=== PATIENT | female | born 1940 | race Caucasian/White ===

== ENCOUNTER → 2019-07-31 08:48 | Outpatient (CLI) | payer MEDICARE, SELFPAY ==
--- NOTE | ~2019-07-31 | MMUS_ITS ---
EXAMINATION: MM diagnostic nabeel RT w jacy, US breast RT complete HISTORY: Six-month follow-up of dense tissue in lateral mid right breast. Right breast pain TECHNIQUE: ML, MLO and cc full field and spot 3-D tomosynthesis images of the right breast were perfo rmed and synthetic 2-D images were generated. CAD analysis was submitted and interpreted. High resolu tion complete right breast ultrasound was performed. COMPARISON: 12/18/2018 diagnostic bilateral digital mammogram and complete right breast ultrasound 08/16/2017 bilateral diagnostic digital mammogram and complete right breast ultrasound 02/16/2012 bilateral digital screening mammogram 05/15/2010 bilateral digital screening mammogram BREAST PARENCHYMAL COMPOSITION: The breasts are extremely dense, which lowers the sensitivity of mamm ography. FINDINGS: MAMMOGRAPHIC FINDINGS: 2 biopsy markers are again noted on the right. No interval suspicious mass or architectural distortio n or significant new or developing density of the right breast is evident. There are numerous benign calcifications. ULTRASOUND: There is very dense echotexture particularly at 6:00 and 10:00 areas. The dense mammographic stroma a nd the dense sonographic tissue with shadowing at these areas limits of these examinations. Close cor relation with physical examination is important. MRI imaging may be of benefit in this setting. At right breast 6:00 position 5 cm from the nipple there is a parallel circumscribed complicated 10 x 4 x 12 mm lesion without internal vascularity or suspicious shadowing, having benign sonographic fea tures. No other definite focal mass lesion is noted. IMPRESSION: 1. Limited mammographic and sonographic examinations due to very dense tissue 2. Consider MRI breast evaluation BI-RADS Category 0: Incomplete: Needs additional imaging evaluation. Reviewed, dictated and finalized at location A. PER IMPRESSION: 1. Limited mammographic and sonographic examinations due to very dense tissue 2. Consider MRI breast evaluation BI-RADS Category 0: Incomplete: Needs additional imaging evaluation.
== END ==
PROVIDERS: PCP Internal Medicine Hematology & Oncology; Visit Provider Internal Medicine Hematology & Oncology
DX: R92.8 Other abnormal and inconclusive findings on diagnostic imaging of breast (principal)
CPT/HCPCS: 76641; 77061; 77065; G0279

== ENCOUNTER → 2019-09-05 10:52 | Outpatient (CLI) | payer MEDICARE, SELFPAY ==
--- NOTE | ~2019-09-05 | XR_ITS ---
EXAMINATION: XR shoulder LT min 2V DATE: 09/05/2019 11:20 INDICATION: Left shoulder pain. TECHNIQUE: 4 views of left shoulder were obtained. COMPARISON: None. FINDINGS: Bone alignment is normal. No fracture. There is severe osteoarthritis of glenohumeral joint and moderate osteoarthritis of acromioclavicular joint. There are loose bodies in the glenohumeral j oint. There are changes of anterior and posterior fusion procedures in cervical spine. A left chest p acer is noted. IMPRESSION: 1. Polyarticular osteoarthritis. 2. Left glenohumeral joint loose bodies. Reviewed, dictated and finalized at location A. TY SALES ASSISTANT
== END ==
PROVIDERS: PCP Family Medicine; Visit Provider Family Medicine
DX: M19.012 Primary osteoarthritis, left shoulder (principal); M24.012 Loose body in left shoulder
CPT/HCPCS: 73030

== ENCOUNTER → 2020-01-23 08:40 | Outpatient (CLI) | payer MEDICARE, SELFPAY ==
--- NOTE | ~2020-01-23 | MMUS_ITS ---
EXAMINATION: MM diagnostic nabeel BI w jacy, US breast RT limited HISTORY: Follow-up right breast mass TECHNIQUE: Additional 3-D tomosynthesis images of the breasts were performed and synthetic 2-D images were generated. CAD analysis was submitted and interpreted. High resolution right breast ultrasound was performed. COMPARISON: Comparison to multiple prior studies sequentially, with oldest reviewed study dated 05/04. BREAST PARENCHYMAL COMPOSITION: BREAST PARENCHYMAL COMPOSITION: The breasts are heterogeneously dense, which may obscure small masses . 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 There are scat tered benign-appearing calcifications. There are no new masses, calcifications or architectural disto rtion in either breast to suggest malignancy. ULTRASOUND: Right breast ultrasound: Stable 12 mm intramammary lymph node at the 6:00 position of the right breast, 5 cm from the nipple m easuring 12 mm greatest dimension. No suspicious masses to suggest malignancy. IMPRESSION: 1. No mammographic or sonographic evidence for malignancy in the breasts. 2. Routine yearly screening mammogram and regular clinical breast examination are recommended. BI-RADS Category 2: Benign finding(s). Reviewed, dictated and finalized at location A. IMPRESSION: 1. No mammographic or sonographic evidence for malignancy in the breasts. 2. Routine yearly screening mammogram and regular clinical breast examination a re recommended. BI-RADS Category 2: Benign finding(s).
== END ==
PROVIDERS: Visit Provider Internal Medicine Hematology & Oncology
DX: N63.21 Unspecified lump in the left breast, upper outer quadrant (principal)
CPT/HCPCS: 76642; 77062; 77066; G0279

== ENCOUNTER 2020-02-04 14:44 | Outpatient (CLI) | payer MEDICARE, SELFPAY ==
[2020-02-04 15:06] LABS: Basophils Absolute Auto 0.1 K/mm3 (0.0-0.1); Eosinophils Absolute Auto 0.2 K/mm3 (0-0.3); Eosinophils Percent Auto 3.8 % (0-4.4); Hematocrit 38.3 % (37.0-47.0); Immature Granulocyte Absolute 0.01 K/mm3 (0.00-0.031); Immature Granulocyte Percent A 0.2 % (0-0.5); Lymphocytes Absolute Auto 0.87 K/mm3 (0.9-3.2); Lymphocytes Percent Auto 17.4 % (18.3-44.2); Mean Corpuscular HGB Conc 33.9 g/dl (32-36); Mean Corpuscular Hemoglobin 31.6 pg (26-34); Mean Corpuscular Volume 93.2 fl (80-100); Mean Platelet Volume 10.8 fl (7.4-10.4); Monocytes Absolute Auto 0.6 K/mm3 (0.1-0.6); Neutrophils Absolute Auto 3.3 K/mm3 (1.3-6.7); Neutrophils Percent Auto 65.6 % (45.5-73.1); Platelet Count Result 214 k/mm3 (150-375); Red Blood Count 4.11 M/mm3 (4.2-5.4); Red Cell Distribution Width 12.9 % (11.5-14.5)
[2020-02-04 16:37] LABS: Alanine Aminotransferase 30 U/L (4-35); Albumin Level 4.3 g/dL (3.5-5.1); Alkaline Phosphatase 110 U/L (38-126); Aspartate Amino Transferase 34 U/L (14-36); Bilirubin,Total 0.3 mg/dL (0.2-1.3); Blood Urea Nitrogen 21 mg/dL (7-17); Carbon Dioxide 31 mmol/L (22-30); Chloride 94 mmol/L (98-107); Estimated Glomerular Filt Rate 43; Glucose 77 mg/dL (65-105); Sodium 136 mmol/L (137-145)
== END 2020-02-04 14:45 | disposition home or self-care (01) ==
PROVIDERS: PCP Family Medicine; Visit Provider Internal Medicine Hematology & Oncology
DX: N63.10 Unspecified lump in the right breast, unspecified quadrant (principal); N63.20 Unspecified lump in the left breast, unspecified quadrant; R59.1 Generalized enlarged lymph nodes
CPT/HCPCS: 36415; 80053; 85025

== ENCOUNTER 2020-08-05 12:36 | Outpatient (CLI) | payer MEDICARE, SELFPAY ==
[2020-08-05 13:08] LABS: Basophils Absolute Auto 0.1 K/mm3 (0.0-0.1); Eosinophils Absolute Auto 0.1 K/mm3 (0-0.3); Eosinophils Percent Auto 2.8 % (0-4.4); Hematocrit 41.3 % (37.0-47.0); Hemoglobin 13.6 g/dL (12.0-15.0); Immature Granulocyte Absolute 0.01 K/mm3 (0.00-0.031); Immature Granulocyte Percent A 0.2 % (0-0.5); Lymphocytes Absolute Auto 0.89 K/mm3 (0.9-3.2); Lymphocytes Percent Auto 17.5 % (18.3-44.2); Mean Corpuscular HGB Conc 32.9 g/dl (32-36); Mean Corpuscular Hemoglobin 30.5 pg (26-34); Mean Corpuscular Volume 92.6 fl (80-100); Mean Platelet Volume 11.1 fl (7.4-10.4); Monocytes Absolute Auto 0.5 K/mm3 (0.1-0.6); Monocytes Percent Auto 9.8 % (2.6-8.5); Neutrophils Absolute Auto 3.5 K/mm3 (1.3-6.7); Neutrophils Percent Auto 68.7 % (45.5-73.1); Platelet Count Result 233 k/mm3 (150-375); Red Blood Count 4.46 M/mm3 (4.2-5.4); Red Cell Distribution Width 13.3 % (11.5-14.5); White Blood Count 5.1 K/mm3 (4.5-10.0)
== END 2020-08-05 12:37 | disposition home or self-care (01) ==
LOC: ANHLAB 12:38
PROVIDERS: PCP Family Medicine; Visit Provider Internal Medicine Hematology & Oncology
DX: R59.1 Generalized enlarged lymph nodes (principal)
CPT/HCPCS: 36415; 85025

== ENCOUNTER → 2021-02-09 10:12 | Outpatient (CLI) | payer MEDICARE, SELFPAY ==
--- NOTE | ~2021-02-09 | MM_ITS ---
EXAMINATION: MM screening nabeel BI w jacy HISTORY: Screening TECHNIQUE: Craniocaudal and mediolateral oblique 3-D tomosynthesis images were obtained and synthetic 2-D images were generated. CAD analysis was submitted and interpreted. COMPARISON: Comparison to multiple prior studies sequentially, with oldest reviewed study dated 02/15. BREAST PARENCHYMAL COMPOSITION: The breasts are extremely dense, which lowers the sensitivity of mamm ography FINDINGS: There is no evidence of suspicious mass, calcification, or architectural distortion to sugg est malignancy in either breast. There has been no suspicious interval change. IMPRESSION: 1. No mammographic evidence of malignancy. 2. Recommend routine screening mammography in one year. BI-RADS Category 1: Negative Reviewed, dictated and finalized at location A.
== END ==
PROVIDERS: PCP Family Medicine; Visit Provider Internal Medicine Hematology & Oncology
DX: Z12.31 Encounter for screening mammogram for malignant neoplasm of breast (principal)
CPT/HCPCS: 77063; 77067

== ENCOUNTER 2021-07-27 10:42 | Emergency (ER) | payer MEDICARE, SELFPAY ==
--- NOTE | ~2021-07-27 | XR_ITS ---
XR foot LT min 3V 07/27/2021 11:21 Indication: Left foot pain Procedure: 4 views left foot Comparison: No prior studies for comparison. Findings: Advanced osteoarthritis of the left first metatarsal-phalangeal joints with hallux valgus. Moderate osteoarthritis of the second metatarsophalangeal joint. Normal mineralization. Lisfranc join t intact. There are degenerative calcaneal enthesophytes. No acute fracture or traumatic malalignment is identified. There are also degenerative changes of the ankle and midfoot. Impression: 1: Moderate polyarticular osteoarthritis of the left foot primarily involving the first and second me tatarsal-phalangeal joints. Reviewed, dictated and finalized at location B. SCAN TECHNOLOGIST Impression: 1: Moderate polyarticular osteoarthritis of the left foot primarily involving t he first and second metatarsal-phalangeal joints.
[2021-07-27 11:01] VITALS: BP 123/77; PULSE 60; RESP 16; TEMP 36.8; O2SAT 97
--- NOTE | 2021-07-27 11:10 | ED.LOWEXIN ---
HPI - Extremity Injury (Lower) General Chief Complaint: Extremity Injury, Lower Stated Complaint: Left foot Pain Time Seen by Provider: 07/27/21 11:05 Source: patient, RN notes reviewed and old records reviewed Mode of arrival: ambulatory Limitations: no limitations History of Present Illness HPI Narrative: 81-year-old female presents to the [facility] with complaints of left foot pain. States the pain swelling tenderness and redness at the base of the great toe. States she injured it 2 to 3 days before it started hurting. Pain x3 days. Walks with a normal gait. Related Data Home Medications Medication Instructions Recorded Confirmed docusate sodium 100 mg tablet 100 mg PO DAILY 08/12/20 05/24/21 melatonin 10 mg capsule mg PO 08/12/20 05/24/21 sjegblty-qfpcgms-vbti-lutein tablet tablet PO 08/12/20 05/24/21 Allergies Allergy/AdvReac Type Severity Reaction Status Date / Time adhesive Allergy Severe RASH Verified 05/12/21 13:07 neomycin Allergy Severe RASH Verified 05/12/21 13:07 bacitracin Allergy Unknown Rash Verified 05/12/21 13:07 polymyxin B Allergy Unknown Rash Verified 05/12/21 13:07 Review of Systems Review of Systems: All systems reviewed & are unremarkable except as noted in HPI and below Constitutional: Constitutional: Reports no additional constitutional complaints, Denies chills and Denies fever(s) Eyes: Eyes: Reports no additional eye complaints ENT: Reports system reviewed and no additional complaints, except as documented Cardiovascular: Cardiovascular: Reports no additional cardiovascular complaints and Denies chest pain Respiratory: Respiratory: Reports no additional respiratory complaints, Denies cough and Denies dyspnea Gastrointestinal: Gastrointestinal: Reports no additional gastrointestinal complaints, Denies abdominal pain, Denies nausea and Denies vomiting Musculoskeletal: Musculoskeletal: Reports as per HPI, Reports arthralgias (Base of left great toe) and Reports joint swelling (Base of left great toe) Integumentary/Breasts: Skin/Breast: Reports system reviewed and no additional complaints, except as docu Neurologic: Reports system reviewed and no additional complaints, except as documented Psychiatric: Psychiatric: Reports no additional psychiatric complaints Allergic/Immunologic: Allergic/Immunologic: Reports no additional allergic/immunologic complaints PMFSH Past Medical History Medical History Anal warts Aphasia S/P CVA Heart failure Kidney failure YVES on CPAP Osteoarthritis Pacemaker PAF (paroxysmal atrial fibrillation) Skin tag of perianal region Stroke Surgical History Surgical History H/O cervical spinal arthrodesis History of knee replacement bilateral Family History Family History Father Diabetes mellitus Family history of cardiovascular disease Family history of lung cancer Mother Diabetes mellitus Family history of cardiovascular disease Social History Social History Social History: Single Smoking status: Never smoker Second hand tobacco smoke exposure: No Alcohol intake: former Substance use: never Substance use type: does not use Gender identity (if verbalized by the patient): Female Sexual Orientation (if Verbalized by the Patient): Straight or Heterosexual Comments At the time of my signature, I reviewed and agree with the nursing past medical, surgical, social, and family history. There is no relevant family history pertinent to the patient complaint. Exam Const: General: healthy appearing, no acute distress and alert Nutritional Appearance: well nourished Orientation/consciousness: patient oriented x3 Limitations: no limitations HENMT: Head: normal to inspection Ears: external ears normal Eyes: Pupils: Equal, round
== END 2021-07-27 12:01 | disposition home or self-care (01) ==
PROVIDERS: Emergency Provider Nurse Practitioner; PCP Family Medicine
DX: M10.9 Gout, unspecified (principal); I50.9 Heart failure, unspecified; G47.33 Obstructive sleep apnea (adult) (pediatric); M19.90 Unspecified osteoarthritis, unspecified site; Z95.0 Presence of cardiac pacemaker; I48.0 Paroxysmal atrial fibrillation; Z86.73 Personal history of transient ischemic attack (TIA), and cerebral infarction without residual deficits; Z96.653 Presence of artificial knee joint, bilateral
CPT/HCPCS: 73630; 99213; G0463

== ENCOUNTER → 2021-08-20 14:00 | Outpatient (CLI) | payer MEDICARE, SELFPAY ==
--- NOTE | ~2021-08-20 | XR_ITS ---
XR hand RT 2V DATE: 08/20/2021 14:13 INDICATION: Injury, pain TECHNIQUE: AP and lateral views COMPARISON: None FINDINGS: There is osteoarthritic change including the triscaphe, first carpometacarpal, first throug h third metacarpophalangeal and all interphalangeal joints. No fracture or dislocation, periosteal reaction or bone destruction, chondrocalcinosis or erosive colt nge. IMPRESSION: Polyarticular osteoarthritis Reviewed, dictated and finalized at location B. ICAL CARE NURSE PRACTITIONER
--- NOTE | ~2021-08-20 | XR_ITS ---
XR wrist RT 2V DATE: 08/20/2021 14:13 INDICATION: Injury from fall. Hand pain. TECHNIQUE: AP and lateral views COMPARISON: None FINDINGS: There is osteopenia. There is osteoarthritic change at the triscaphe joint and first carpo metacarpal and metacarpophalangeal joints. No fracture or dislocation, periosteal reaction or bone d estruction. No erosive changes. IMPRESSION: Polyarticular osteoarthritis Reviewed, dictated and finalized at location B. ED TUBING OPERATOR
== END ==
PROVIDERS: PCP Family Medicine; Visit Provider Family Medicine
DX: M25.531 Pain in right wrist (principal); T14.90XA Injury, unspecified, initial encounter; M19.031 Primary osteoarthritis, right wrist; M19.041 Primary osteoarthritis, right hand
CPT/HCPCS: 73100; 73120

== ENCOUNTER → 2021-08-21 13:31 | Outpatient (CLI) | payer MEDICARE, SELFPAY ==
--- NOTE | ~2021-08-21 | DEXA_ITS ---
Bone Density Report Name: JESUS LAMBERT Age: 81 Sex: Female Ethnicity: White Date of : 1940 Indication: postmenopausal; screening for osteoporosis; parental hip fracture; height loss; Referring Provider: NOLVIA LEWIS Study: Bone densitometry was performed. Exam Date: August 21, 2021 Accession number: [id number] Bone Density: Region BMD T-score Z-score Classification AP Spine (L2, L3) 1.106 0.4 3.2 Normal Femoral Neck (Left) 0.683 -1.5 0.8 Osteopenia Total Hip (Left) 0.796 -1.2 0.9 Osteopenia Femoral Neck (Right) 0.717 -1.2 1.1 Osteopenia Total Hip (Right) 0.801 -1.2 0.9 Osteopenia Total Hip Mean 0.799 -1.2 0.9 Osteopenia World Health Organization criteria for BMD impression classify patients as: Normal (T-score at or above -1.0), Osteopenia (T-score between -1.0 and -2.5), or Osteoporosis (T-score at or below -2.5). 10-year Fracture Risk(1): Major Osteoporotic Fracture 23% Hip Fracture 13% Reported Risk Factors: [place] (), Neck BMD=0.683, BMI=28.2, parental fracture (1) FRAX(R) Version 3.08. Fracture probability calculated for an untreated patient. Fracture probability may be lower if the patient has received treatment. Previous Exams: Region Exam Age BMD T-score BMD Change BMD Change Date g/cm2 vs Baseline vs Previous AP Spine(L2, L3) 08/21/2021 81 1.106 0.4 -0.138 -0.138 11/16/2002 62 1.244 1.7 Total Hip(Left) 08/21/2021 81 0.796 -1.2 -0.190 -0.190 11/16/2002 62 0.986 0.4 Total Hip(Right) 08/21/2021 81 0.801 -1.2 -0.171 -0.171 11/16/2002 62 0.971 0.2 *Denotes significance at 95% confidence level, LSC for AP Spine = 0.022 g/cm2, LSC for Total Hip = 0.027 g/cm2 Clinical Information Provided by Patient: Parent has had a hip fracture Patient maximum height was 62 Menopause Age: 63 No regular weight bearing exercise Onset of menses at age 14 Number of children 0 Impression: The patient has low bone mass, based on the Left Femoral Neck T-score. The patient has an estimated ten-year risk of hip fracture of 13% and an estimated ten-year risk of major fracture of 23%, based on the WHO FRAX algorithm. The patient has risk factors, including: parental hip fracture. No significant bone loss was observed. Discussion: BONE DENSITY IS LOW AT ONE OR MORE SKELETAL SITES. THE PATIENT'S BMD AND CLINICAL RISK FACTORS CONTRIBUTE TO THIS PA
== END ==
PROVIDERS: PCP Family Medicine; Visit Provider Family Medicine
DX: Z78.0 Asymptomatic menopausal state (principal); M85.89 Other specified disorders of bone density and structure, multiple sites
CPT/HCPCS: 77080

== ENCOUNTER 2021-08-31 14:58 | Outpatient (CLI) | payer MEDICARE, SELFPAY ==
[2021-08-31 15:17] LABS: Basophils Percent Auto 0.4 % (0.2-1.2); Eosinophils Absolute Auto 0.2 K/mm3 (0-0.3); Eosinophils Percent Auto 3.1 % (0-4.4); Hemoglobin 12.6 g/dL (12.0-15.0); Immature Granulocyte Absolute 0.04 K/mm3 (0.00-0.031); Immature Granulocyte Percent A 0.7 % (0-0.5); Lymphocytes Absolute Auto 0.65 K/mm3 (0.9-3.2); Lymphocytes Percent Auto 11.7 % (18.3-44.2); Mean Corpuscular HGB Conc 32.3 g/dl (32-36); Mean Corpuscular Hemoglobin 31.2 pg (26-34); Mean Corpuscular Volume 96.5 fl (80-100); Mean Platelet Volume 10.5 fl (7.4-10.4); Monocytes Absolute Auto 0.6 K/mm3 (0.1-0.6); Monocytes Percent Auto 10.1 % (2.6-8.5); Neutrophils Absolute Auto 4.1 K/mm3 (1.3-6.7); Platelet Count Result 234 k/mm3 (150-375); Red Blood Count 4.04 M/mm3 (4.2-5.4); Red Cell Distribution Width 14.6 % (11.5-14.5); White Blood Count 5.6 K/mm3 (4.5-10.0)
[2021-08-31 15:21] LABS: Blood Urea Nitrogen 30 mg/dL (8-26); Carbon Dioxide 29 mmol/L (22-30); Chloride 97 mmol/L (98-109); Estimated Glomerular Filt Rate 29; Glucose 99 mg/dL (70-105); Potassium 3.8 mmol/L (3.5-4.9); Sodium 137 mmol/L (138-146)
[2021-08-31 17:04] LABS: Alanine Aminotransferase 25 U/L (4-35); Alkaline Phosphatase 79 U/L (38-126); Anion Gap 7 mmol/L (8-16); Aspartate Amino Transferase 70 U/L (14-36); Bilirubin,Total 0.5 mg/dL (0.2-1.3); Blood Urea Nitrogen 31 mg/dL (7-17); Calcium 8.6 mg/dL (8.4-10.2); Carbon Dioxide 30 mmol/L (22-30); Chloride 99 mmol/L (98-107); Estimated Glomerular Filt Rate 31; Glucose 96 mg/dL (65-110); Potassium 3.8 mmol/L (3.4-5.0); Sodium 136 mmol/L (137-145)
== END 2021-08-31 14:59 | disposition home or self-care (01) ==
LOC: ANHLAB 14:59
PROVIDERS: PCP Family Medicine; Visit Provider Internal Medicine Hematology & Oncology
DX: R59.1 Generalized enlarged lymph nodes (principal); N63.10 Unspecified lump in the right breast, unspecified quadrant; N63.20 Unspecified lump in the left breast, unspecified quadrant
CPT/HCPCS: 36415; 80053; 85025

== ENCOUNTER 2022-02-11 09:30 | Outpatient (CLI) | payer MEDICARE, SELFPAY ==
--- NOTE | ~2022-02-11 | MM_ITS ---
EXAMINATION: MM screening [facility] BI w jacy HISTORY: Screening mammogram TECHNIQUE: Craniocaudal and mediolateral oblique 3-D tomosynthesis images were obtained and synthetic 2-D images were generated. CAD analysis was submitted and interpreted. COMPARISON: 02/09/2021, 01/23/2020, 07/31/2019 BREAST PARENCHYMAL COMPOSITION: The breasts are heterogeneously dense, which may obscure small masses . FINDINGS: There is no suspicious mass, calcification, or architectural distortion to suggest malignan cy in either breast. There has been no suspicious interval change. IMPRESSION: 1. No mammographic evidence of malignancy. 2. Recommend routine screening mammography while the patient remains in good health. BI-RADS Category 1: Negative Reviewed, dictated and finalized at location A. IMPRESSION: 1. No mammographic evidence of malignancy. 2. Recommend routine screening mammography while the patient remains in good he alth. BI-RADS Category 1: Negative
== END 2022-02-11 09:31 | disposition home or self-care (01) ==
PROVIDERS: PCP Family Medicine; Visit Provider Internal Medicine Hematology & Oncology
DX: Z12.31 Encounter for screening mammogram for malignant neoplasm of breast (principal)
CPT/HCPCS: 77063; 77067

== ENCOUNTER 2022-03-04 13:45 | Outpatient (CLI) | payer MEDICARE, SELFPAY ==
[2022-03-04 13:59] LABS: Basophils Percent Auto 0.7 % (0.2-1.2); Eosinophils Absolute Auto 0.3 K/mm3 (0-0.3); Eosinophils Percent Auto 4.6 % (0-4.4); Hematocrit 37.6 % (37.0-47.0); Hemoglobin 12.4 g/dL (12.0-15.0); Immature Granulocyte Absolute 0.01 K/mm3 (0.00-0.031); Immature Granulocyte Percent A 0.2 % (0-0.5); Lymphocytes Absolute Auto 0.93 K/mm3 (0.9-3.2); Lymphocytes Percent Auto 15.7 % (18.3-44.2); Mean Corpuscular Hemoglobin 30.8 pg (26-34); Mean Corpuscular Volume 93.5 fl (80-100); Mean Platelet Volume 11.3 fl (7.4-10.4); Monocytes Absolute Auto 0.5 K/mm3 (0.1-0.6); Monocytes Percent Auto 8.5 % (2.6-8.5); Neutrophils Absolute Auto 4.2 K/mm3 (1.3-6.7); Neutrophils Percent Auto 70.3 % (45.5-73.1); Platelet Count Result 229 k/mm3 (150-375); Red Blood Count 4.02 M/mm3 (4.2-5.4); Red Cell Distribution Width 14.9 % (11.5-14.5); White Blood Count 5.9 K/mm3 (4.5-10.0)
[2022-03-04 14:03] LABS: Blood Urea Nitrogen 22 mg/dL (8-26); Carbon Dioxide 29 mmol/L (22-30); Chloride 98 mmol/L (98-109); Estimated Glomerular Filt Rate 43; Glucose 92 mg/dL (70-105); Ionized Calcium (POC) 1.23 mmol/L (1.11-1.31); Potassium 4.3 mmol/L (3.5-4.9); Sodium 138 mmol/L (138-146)
[2022-03-04 15:46] LABS: Alanine Aminotransferase 24 U/L (6-35); Albumin Level 4.4 g/dL (3.5-5.1); Alkaline Phosphatase 66 U/L (38-126); Anion Gap 11 mmol/L (8-16); Aspartate Amino Transferase 30 U/L (14-36); Bilirubin,Total 0.3 mg/dL (0.2-1.3); Blood Urea Nitrogen 22 mg/dL (7-17); Calcium 9.8 mg/dL (8.4-10.2); Carbon Dioxide 31 mmol/L (22-30); Chloride 94 mmol/L (98-107); Estimated Glomerular Filt Rate 48; Glucose 93 mg/dL (65-110); Potassium 4.2 mmol/L (3.4-5.0); Sodium 136 mmol/L (137-145)
== END 2022-03-04 13:46 | disposition home or self-care (01) ==
LOC: ANHLAB 13:46
PROVIDERS: PCP Family Medicine; Visit Provider Internal Medicine Hematology & Oncology
DX: R59.1 Generalized enlarged lymph nodes (principal)
CPT/HCPCS: 36415; 80047; 80053; 85025

== ENCOUNTER 2023-02-14 10:15 | Outpatient (CLI) | payer MEDICARE, SELFPAY ==
--- NOTE | ~2023-02-14 | MM_ITS ---
EXAMINATION: MM screening nabeel BI w jacy HISTORY: Screening TECHNIQUE: Craniocaudal and mediolateral oblique 3-D tomosynthesis images were obtained and synthetic 2-D images were generated. CAD analysis was submitted and interpreted. COMPARISON: Comparison to multiple prior studies sequentially, with oldest reviewed study dated 05/04. BREAST PARENCHYMAL COMPOSITION: The breasts are extremely dense, which lowers the sensitivity of mamm ography FINDINGS: There are new focal asymmetries in the central aspect of the left breast on CC view. The ri ght breast is stable without evidence for malignancy. IMPRESSION: 1. New focal left breast asymmetries located centrally, best seen on CC view. 2. Additional mammographic views and possible breast ultrasound are recommended. BI-RADS Category 0: Incomplete: Needs additional imaging evaluation. Reviewed, dictated and finalized at location A. IMPRESSION: 1. New focal left breast asymmetries located centrally, best seen on CC view. 2. Additional mammographic views and possible breast ultrasound are recommended . BI-RADS Category 0: Incomplete: Needs additional imaging evaluation.
== END 2023-02-14 10:16 | disposition home or self-care (01) ==
LOC: ANHIMG 10:18
PROVIDERS: PCP Family Medicine; Visit Provider Internal Medicine Hematology & Oncology
DX: Z12.31 Encounter for screening mammogram for malignant neoplasm of breast (principal); R92.8 Other abnormal and inconclusive findings on diagnostic imaging of breast
CPT/HCPCS: 77063; 77067

== ENCOUNTER 2023-03-11 11:43 | Outpatient (CLI) | payer MEDICARE, SELFPAY ==
--- NOTE | ~2023-03-11 | MMUS_ITS ---
EXAMINATION: MM diagnostic nabeel LT w jacy, US breast LT complete HISTORY: New focal left breast asymmetries are noted on screening CC view of 02/14/2023 TECHNIQUE: Additional 3-D tomosynthesis images of the left breast were performed and synthetic 2-D im ages were generated. CAD analysis was submitted and interpreted. High resolution complete left breast ultrasound examination including all 4 quadrants and subareolar area was performed. COMPARISON: 02/11/2022, 02/14/2023 bilateral screening mammogram examinations August 26, 2017 ultrasound breast biopsy August 16, 2017 diagnostic mammogram and bilateral Limited breast ultrasound: The ultrasound images are not available from PACS FINDINGS: MAMMOGRAPHIC FINDINGS: 2 biopsy markers are noted No reproducible suspicious mass is evident on these additional diagnostic views. Occasional benign ca lcifications. Somewhat nodular appearing heterogeneously dense stroma may obscure masses. Therefore, ultrasound examination was performed. ULTRASOUND: 11:00 8 cm from nipple: There is an irregular hypoechoic area corresponds to a previously biopsied le ophelia at the same location, reported benign. There is a similar area at 1:00; there is a biopsy marker at 1:00 on 03/11/2023 mammogram. Otherwise no suspicious mass, suspicious shadowing, cyst or other significant sonographic abnormality of the left breast is noted. IMPRESSION: 1. Probable postbiopsy changes at 11:00 8 cm from nipple and at 1:00 2. Six-month diagnostic left mammogram and targeted left breast 11:00 to 1:00 ultrasound examination are recommended BI-RADS category 3, probably benign findings. Reviewed, dictated and finalized at location A. IMPRESSION: 1. Probable postbiopsy changes at 11:00 8 cm from nipple and at 1:00 2. Six-month diagnostic left mammogram and targeted left breast 11:00 to 1:00 u ltrasound examination are recommended BI-RADS category 3, probably benign findings.
== END 2023-03-11 11:44 | disposition home or self-care (01) ==
PROVIDERS: PCP Family Medicine; Visit Provider Internal Medicine Hematology & Oncology
DX: R92.8 Other abnormal and inconclusive findings on diagnostic imaging of breast (principal)
CPT/HCPCS: 76641; 77061; 77065; G0279

== ENCOUNTER 2023-03-18 13:32 | Outpatient (CLI) | payer MEDICARE, SELFPAY ==
[2023-03-18 13:59] LABS: Basophils Absolute Auto 0.1 K/mm3 (0.0-0.1); Basophils Percent Auto 0.9 % (0.2-1.2); Eosinophils Absolute Auto 0.2 K/mm3 (0-0.3); Eosinophils Percent Auto 3.5 % (0-4.4); Hematocrit 36.9 % (37.0-47.0); Hemoglobin 12.6 g/dL (12.0-15.0); Immature Granulocyte Absolute 0.02 K/mm3 (0.00-0.031); Immature Granulocyte Percent A 0.3 % (0-0.5); Lymphocytes Absolute Auto 1.01 K/mm3 (0.9-3.2); Lymphocytes Percent Auto 15.4 % (18.3-44.2); Mean Corpuscular HGB Conc 34.1 g/dl (32-36); Mean Corpuscular Volume 93.7 fl (80-100); Mean Platelet Volume 11.4 fl (7.4-10.4); Monocytes Absolute Auto 0.6 K/mm3 (0.1-0.6); Monocytes Percent Auto 8.8 % (2.6-8.5); Neutrophils Absolute Auto 4.7 K/mm3 (1.3-6.7); Neutrophils Percent Auto 71.1 % (45.5-73.1); Platelet Count Result 253 k/mm3 (150-375); Red Blood Count 3.94 M/mm3 (4.2-5.4); Red Cell Distribution Width 14.2 % (11.5-14.5); White Blood Count 6.6 K/mm3 (4.5-10.0)
[2023-03-18 16:44] LABS: Alanine Aminotransferase 28 U/L (6-35); Albumin Level 4.5 g/dL (3.5-5.1); Alkaline Phosphatase 77 U/L (38-126); Anion Gap 8 mmol/L (8-16); Aspartate Amino Transferase 36 U/L (14-36); Bilirubin,Total 0.4 mg/dL (0.2-1.3); Blood Urea Nitrogen 40 mg/dL (7-17); Carbon Dioxide 31 mmol/L (22-30); Chloride 94 mmol/L (98-107); Estimated Glomerular Filt Rate 33; Glucose 94 mg/dL (65-110); Sodium 133 mmol/L (137-145)
== END 2023-03-18 13:33 | disposition home or self-care (01) ==
LOC: ANHLAB 13:35
PROVIDERS: PCP Family Medicine; Visit Provider Internal Medicine Hematology & Oncology
DX: R59.1 Generalized enlarged lymph nodes (principal)
CPT/HCPCS: 36415; 80053; 85025

== ENCOUNTER → 2023-05-04 10:22 | Outpatient (CLI) | payer MEDICARE, SELFPAY ==
--- NOTE | ~2023-05-04 | XR_ITS ---
EXAMINATION: XR tibia fibula RT 2V DATE: 05/04/2023 11:14 INDICATION: Unspecified fall, initial encounter. TECHNIQUE: 2 views of right tibia and fibula were obtained. COMPARISON: None. FINDINGS: There is a total right knee arthroplasty without patellar resurfacing in near-anatomic alig nment. No fracture. No periprosthetic lucency to suggest loosening or infection. No knee joint effusi on. IMPRESSION: 1. Total right knee arthroplasty in near-anatomic alignment. Reviewed, dictated and finalized at location E.
--- NOTE | ~2023-05-04 | XR_ITS ---
[id number] 05/04/2023 11:14 Indication: Right knee pain after fall Procedure: 2 views right knee Comparison: No prior studies for comparison. Findings: There is a right total knee arthroplasty. Prosthesis well seated. No underlying fracture or traumatic malalignment. No significant joint effusion. Impression: 1: No acute fracture. Reviewed, dictated and finalized at location B. Impression: 1: No acute fracture.
--- NOTE | ~2023-05-04 | XR_ITS ---
EXAMINATION: XR wrist RT 2V DATE: 05/04/2023 11:14 INDICATION: Unspecified fall, initial encounter. TECHNIQUE: 2 views of right wrist were obtained. COMPARISON: None. FINDINGS: Bone alignment is normal. No fracture. There is moderate osteoarthritis of triscaphe joint and severe osteoarthritis of first carpometacarpal joint. There is mild osteoarthritis of first-fourt h metacarpophalangeal joints. IMPRESSION: 1. Polyarticular osteoarthritis. Reviewed, dictated and finalized at location E.
--- NOTE | ~2023-05-04 | XR_ITS ---
EXAMINATION: XR forearm RT 2V DATE: 05/04/2023 11:14 INDICATION: Unspecified fall, initial encounter. TECHNIQUE: 2 views of right forearm were obtained. COMPARISON: None. FINDINGS: Bone alignment is normal. No fracture. There is mild osteoarthritis of radioscaphoid joint, moderate osteoarthritis of triscaphe joint, and severe osteoarthritis of first carpometacarpal joint . There is mild elbow joint osteoarthritis. No elbow joint effusion. There is soft tissue swelling ov erlying the olecranon, consistent with bursitis. IMPRESSION: 1. Polyarticular osteoarthritis. 2. Olecranon bursitis. Reviewed, dictated and finalized at location E.
--- NOTE | ~2023-05-04 | XR_ITS ---
EXAMINATION: XR elbow RT min 3V DATE: 05/04/2023 11:14 INDICATION: Unspecified fall, initial encounter. TECHNIQUE: 4 views of right elbow were obtained. COMPARISON: None. FINDINGS: Bone alignment is normal. No fracture. There is mild elbow joint osteoarthritis. There are enthesophytes at the medial and lateral humeral epicondyles. No elbow joint effusion. There is soft t issue swelling overlying the olecranon, consistent with bursitis. IMPRESSION: 1. Mild elbow joint osteoarthritis. 2. Olecranon bursitis. Reviewed, dictated and finalized at location E.
== END ==
PROVIDERS: PCP Physician Assistant; Visit Provider Physician Assistant
DX: M19.031 Primary osteoarthritis, right wrist (principal); M19.041 Primary osteoarthritis, right hand; M70.21 Olecranon bursitis, right elbow; M19.021 Primary osteoarthritis, right elbow; Z96.651 Presence of right artificial knee joint
CPT/HCPCS: 73080; 73090; 73100; 73560; 73590

== ENCOUNTER 2023-09-05 12:40 | Outpatient (CLI) | payer MEDICARE, SELFPAY ==
--- NOTE | ~2023-09-05 | MMUS_ITS ---
EXAMINATION: MM diagnostic nabeel LT w jacy, US breast LT complete HISTORY: 6 month follow up of probably benign findings TECHNIQUE: Full field ML and spot CC 3-D tomosynthesis images of the left breast were performed and s ynthetic 2-D images were generated. CAD analysis was submitted and interpreted. High resolution compl ete left breast ultrasound examination including all four quadrants and subareolar area was performed . COMPARISON: 03/11/2023 diagnostic left mammogram and left breast ultrasound 02/14/2023 bilateral screening mammogram BREAST PARENCHYMAL COMPOSITION: There are scattered areas of fibroglandular density. FINDINGS: MAMMOGRAPHIC FINDINGS: Two biopsy markers are again noted; history of 2 prior benign left breast biopsies. No suspicious mass or architectural distortion, malignant calcification, skin thickening or retractio n or significant new or developing density is detected. ULTRASOUND: No suspicious mass or shadowing is detected. IMPRESSION: 1. No evidence of malignancy 2. Routine annual mammographic screening is recommended BIRADS Category 1: Negative Reviewed, dictated and finalized at location A. NG CAR DRIVER IMPRESSION: 1. No evidence of malignancy 2. Routine annual mammographic screening is recommended BIRADS Category 1: Negative
== END 2023-09-05 12:41 | disposition home or self-care (01) ==
LOC: ANHIMG 12:43
PROVIDERS: PCP Family Medicine; Visit Provider Internal Medicine Hematology & Oncology
DX: R92.8 Other abnormal and inconclusive findings on diagnostic imaging of breast (principal)
CPT/HCPCS: 76641; 77061; 77065; G0279

== ENCOUNTER 2024-02-16 11:26 | Outpatient (CLI) | payer MEDICARE, SELFPAY ==
--- NOTE | ~2024-02-16 | DEXA_ITS ---
Bone Density Report Name: JESUS LAMBERT Age: 83 Sex: Female Ethnicity: White Date of : 1940 Indication: postmenopausal; screening for osteoporosis; parental hip fracture; height loss; history of glucocorticoids; end stage renal disease; Referring Provider: Jordyn Villa Study: Bone densitometry was performed. Exam Date: February 16, 2024 Accession number: [id number] Bone Density: Region BMD T-score Z-score Classification AP Spine(L1-L4) 1.244 1.8 4.6 Normal Femoral Neck (Left) 0.706 -1.3 1.1 Osteopenia Total Hip (Left) 0.847 -0.8 1.4 Normal Femoral Neck (Right) 0.767 -0.7 1.7 Normal Total Hip (Right) 0.852 -0.7 1.5 Normal Femoral Neck Mean 0.736 -1.0 1.4 Normal Total Hip Mean 0.850 -0.8 1.5 Normal World Health Organization criteria for BMD impression classify patients as: Normal (T-score at or above -1.0), Osteopenia (T-score between -1.0 and -2.5), or Osteoporosis (T-score at or below -2.5). 10-year Fracture Risk(1): Major Osteoporotic Fracture 32% Hip Fracture 20% Reported Risk Factors: [place] (), Neck BMD=0.706, BMI=29.7, parental fracture, glucocorticoids (1) FRAX(R) Version 3.08. Fracture probability calculated for an untreated patient. Fracture probability may be lower if the patient has received treatment. Clinical Information Provided by Patient: Parent has had a hip fracture Has taken Glucocorticoids Has used the following medications: Fosamax (i.e. alendronate), Vitamin D Has the following medical conditions: End stage renal disease Patient maximum height was 62 No regular weight bearing exercise Onset of menses at age 14 Number of children 0 Impression: The patient has low bone mass, based on the Left Femoral Neck T-score. The patient has risk factors, including: parental hip fracture, history of glucocorticoid therapy. Discussion: BONE DENSITY IS LOW AT ONE OR MORE SKELETAL SITES. This patient's lowest T-score is low at one or more skeletal sites. It meets the World Health Organization's (WHO) criteria for ?low bone mass? (T-score between -1.0 and -2.5). The patient's 10-year risk of fracture as calculated by FRAX is less than the threshold where pharmacological therapy is recommended by the National Osteoporosis Foundation (NOF). However, all treatment decisions require clinical judgment and consideration of individual patient factors, including patient preferences, comorbidities, previous drug use, risk factors not captured in the FRAX model (e.g., frailty, falls, vitamin D deficiency, increased bone turnover, interval significant decline in bone density) and possible under or overestimation of fracture risk by FRAX. The patient should follow a healthful lifestyle (good nutrition with adequate calcium and vitamin D, a
== END 2024-02-16 11:27 | disposition home or self-care (01) ==
PROVIDERS: PCP Family Medicine; Visit Provider Family Medicine
DX: Z78.0 Asymptomatic menopausal state (principal); M85.88 Other specified disorders of bone density and structure, other site
CPT/HCPCS: 77080

== ENCOUNTER 2024-08-10 10:21 | Outpatient (CLI) | payer MEDICARE, SELFPAY ==
--- NOTE | ~2024-08-10 | XR_ITS ---
HISTORY: R07.81 - Pleurodynia COMPARISON: None TECHNIQUE: 2 views of the right ribs were performed. FINDINGS: No acute displaced fracture is appreciated. The adjacent right lung is unremarkable. Bone mineralization is age-appropriate. IMPRESSION: No acute right-sided displaced rib fracture, as detailed above. If clinical suspicion persists, cross-sectional imaging (noncontrast enhanced CT examination of the c hest) is suggested for further evaluation. Reviewed, dictated and finalized at location [facility] IMPRESSION: No acute right-sided displaced rib fracture, as detailed above. If clinical suspicion persists, cross-sectional imaging (noncontrast enhanced C T examination of the chest) is suggested for further evaluation.
== END 2024-08-10 10:22 | disposition home or self-care (01) ==
LOC: MICIMG 10:22
PROVIDERS: PCP Family Medicine; Visit Provider Physician Assistant Medical
DX: R07.81 Pleurodynia (principal)
CPT/HCPCS: 71046; 71110

== ENCOUNTER 2024-09-20 11:15 | Outpatient (CLI) | payer MEDICARE, SELFPAY ==
--- NOTE | ~2024-09-20 | MM_ITS ---
EXAMINATION: MM diagnostic nabeel BI w jacy HISTORY: Follow-up breast asymmetry TECHNIQUE: Additional 3-D tomosynthesis images of the breasts were performed and synthetic 2-D images were generated. CAD analysis was submitted and interpreted. COMPARISON: 01/23/2020 BREAST PARENCHYMAL COMPOSITION: Dense: The breasts are extremely dense, which lowers the sensitivity of mammography. FINDINGS: There are no suspicious masses, calcifications or architectural distortion in either breast to suggest malignancy. IMPRESSION: 1. No evidence for malignancy in either breast. 2. Routine yearly screening mammogram and regular clinical breast examination are recommended. BI-RADS Category 2: Benign finding(s). Reviewed, dictated and finalized at location B. IMPRESSION: 1. No evidence for malignancy in either breast. 2. Routine yearly screening mammogram and regular clinical breast examination a re recommended. BI-RADS Category 2: Benign finding(s).
--- OUTSIDE RECORDS SUMMARY | 2024-09-20 12:14 | XMS_ITS | Referral Summary ---
Author Organization [facility] Address [address] [place] [address] Care Team Providers Care Electrical Test Technician Name Role Phone Efren Navarrete MD Unavailable Chandler Mcdaniels MD Unavailable Poli Villagran MD, Angel Slade Unavailable [phone] Jordyn Villa MD Primary Care Provider Encounters Date Type Department Care Team Description 09/05/2024 8:00 AM ABRASIVE COATING MACHINE OPERATOR Ancillary Procedure [facility] [address] [place] [phone] Pacemaker; Sinus node dysfunction (HCC); PAF (paroxysmal atrial fibrillation) (HCC); Atrial flutter, unspecified type (HCC); PVC (premature ventricular contraction) 08/23/2024 Orders Only [facility] [address] [place] [phone] Gavin Ricketts MD Sinus node dysfunction (HCC) (Primary Dx); Pacemaker; Atrial fibrillation with slow ventricular response (HCC); Atrial flutter, unspecified type (HCC) 08/23/2024 9:45 AM ABRASIVE COATING MACHINE OPERATOR Office Visit [facility] [address] [place] [phone] Gavin Ricketts MD Longstanding persistent atrial fibrillation (HCC) (Primary Dx); Essential hypertension, benign; Pacemaker 07/17/2024 Telephone [facility] [address] [address] [facility] [address] [place] [address] Man Muñoz MD from Last 3 Months Allergies Active Allergy Reactions Criticality Noted Date Comments Adhesive Tape-Silicones Rash Medium 08/04/2017 Neomycin Hives,Rash High 05/11/2019 Rash Knkjfuxj-Buddvamvmz-Hgozvszdd Unknown Omeprazole Diarrhea Low 10/17/2019 Polymyxin B Hives,Rash High 05/11/2019 Rash Medications melatonin 10 mg tablet Take 1 tablet (10 mg total) by mouth nightly as needed Active multivitamin with minerals tablet Take 1 tablet by mouth daily Active furosemide (LASIX) 40 mg tablet TAKE 1 TABLET BY MOUTH EVERY DAY 90 tablet 2 04/25/20 Active Additional Information Patient not taking.Reported on 08/23/2024 magnesium oxide 500 mg capsuleIndicatio ns:Atrial fibrillation with slow ventricular response (HCC),PAF (paroxysmal atrial fibrillation) (HCC),Essential hypertension,PVC (premature ventricular contraction) Take 500 mg by mouth daily 90 capsule 1 03/16/20 22 Active clobetasoL (TEMOVATE) 0.05 % external solution Apply topically 2 (two) times a day 10/27/19 23 Active famotidine (PEPCID) 20 mg tablet Take 1 tablet (20 mg total) by mouth daily 10/12/19 23 Active calcitonin (MIACALCIN) 200 unit/actuation nasal spray 1 spray by other route daily 03/08/20 23 Active calcitRIOL (ROCALTROL) 0.25 mcg capsule Take 1 capsule (0.25 mcg total) by mouth daily 30 capsule 11 10/13/19 24 025 Active Eliquis 5 mg tablet Take 1 tablet (5 mg total) by mouth 2 (two) times a day 180 tablet 3 01/26/20 24 Active allopurinoL (ZYLOPRIM) 100 mg tablet TAKE 3 TABLETS BY MOUTH DAILY 270 tablet 05/15/20 24 Active triamcinolone (KENALOG) 0.1 % ointment APPLY TO THE AFFECTED AREAS OF LEFT SHOULDER DAILY NEEDED. AVOID APPLICATION ON FACE AND GROIN. 05/10/20 24 Active metoprolol tartrate (LOPRESSOR) 100 mg tabletIndication s:Atrial fibrillation with slow ventricular response (HCC) Take 1 tablet (100 mg total) by mouth 2 (two) times a day 180 tablet 3 06/12/20 24 Active methocarbamoL (ROBAXIN) 500 mg tablet Take 1 tablet (500 mg total) by mouth 3 (three) times a day as needed for muscle spasms 08/19/19 25 Active acetaminophen (TYLENOL) 500 mg tablet Take 1 tablet (500 mg total) by mouth every 6 (six) hours as needed for pain Active bisacodyl EC (DULCOLAX EC) 5 mg EC tabletIndication s:constipation Take 1 tablet (5 mg total) by mouth daily as needed for constipation Active polyethylene glycol 400 0.25 % drops Administer 1 drop into both eyes nightly Active UNABLE TO FIND Administer 1 each into both eyes sample prep technician before breakfast Med Name: Sodium chloride Ophthalmic Solution 5% Hypertonicity eye drops Active amiodarone (PACERONE) 200 mg tabletIndication s:Cardioversion of Atrial Fibrillation Take 1 tablet (200 mg total) by mouth daily 90 tablet 3 06/12/20 24 025 Discontin ued(Thera py completed ) amiodarone (PACERONE) 400 mg tabletIndication s:Paroxysmal atrial fibrillation (HCC) Take 1 tablet (400 mg total) by mouth 2 (two) times a day for 14 days 28 tablet 06/12/20 24 025 Discontin ued(Jorjeli reva order) Active Problems Problem Noted Date Diagnosed Date 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 Continue Eliquis. Digoxin already stopped Assessment & Plan (07/10/2019 2:50 PM ABRASIVE COATING MACHINE OPERATOR): Not having any AFib. Probably do not need metoprolol diltiazem and digoxin. CKD so will stop ditch. Pacemaker 06/06/2019 Assessment & Plan (07/15/2020 2:22 PM ABRASIVE COATING MACHINE OPERATOR): Check today shows underlying rhythm sinus bradycardia. 95% a pace no V pacing excellent lead function. Battery 8 years. Assessment & Plan (01/08/2020 4:11 PM CDT): Check shows normal function. Underlying rhythm sinus bradycardia. 100% a pace no V pacing. Excellent lead function better life. Assessment & Plan (07/10/2019 2:38 PM ABRASIVE COATING MACHINE OPERATOR): Check today shows normal function. Underlying rhythm atrial standstill. 100% a pace no V pacing excellent lead function. Battery 9 years. Assessment & Plan (06/06/2019 10:31 AM ABRASIVE COATING MACHINE OPERATOR): [employer] implanted May 19 for tachy-rick. Healing well. Doing well Acute CVA (cerebrovascular accident) 05/02/2019 Assessment & Plan (07/13/2019 11:07 AM ABRASIVE COATING MACHINE OPERATOR): The patient is a 79-year-old female with history of left occipital lobe infarct. The patient initially had a right inferior at quadrantanopsia out of both eyes. Her right eye appears to have fairly well recovered. She still has some blurriness in the right inferior quadrant in the left eye. This does not adversely affect her ability to appreciate her full visual field when both eyes are open. Thus I've told her it's safe for her to start driving though I would drive short distances initially. I'm not going to make any medication changes at this point. I'll see her back as needed. Assessment & Plan (05/02/2019 2:12 AM CDT): Presented with visual changes - Head CT showed large left parietal infarct - She was outside the TPA window -- Daily aspirin -- Check A1c, FLP -- ECHO, Carotid dopplers, MRI -- PT/OT/ST -- Watch on tele -- Consult neuro - the [place] stroke physician felt this was likely to be embolic. He suggested holding anticoagulation for now and checking a Xa level to assess for compliance with Eliquis - she denies missing any doses and her INR was elevated suggesting compliance Bradycardia 05/02/2019 Assessment & Plan (07/15/2020 2:28 PM ABRASIVE COATING MACHINE OPERATOR): Histograms okay Assessment & Plan (05/02/2019 2:12 AM CDT): HR has been in the 30s all evening at OSH - on metoprolol 100 qAM and 50 qPM - will hold any further metoprolol for now and watch on telemetry; she is asymptomatic at this time Acute on chronic renal failure 05/02/2019 Assessment & Plan (05/02/2019 2:13 AM CDT): Creatinine up slightly from baseline - will hold home Lasix; she also felt she had gained 3 pounds so deferring fluids for now, but checking BNP and ECHO Essential (primary) hypertension 05/02/2019 Assessment & Plan (07/15/2020 2:28 PM ABRASIVE COATING MACHINE OPERATOR): Well controlled Assessment & Plan (01/08/2020 4:12 PM CDT): Well controlled Assessment & Plan (07/10/2019 2:48 PM ABRASIVE COATING MACHINE OPERATOR): Continue metoprolol and diltiazem Assessment & Plan (05/02/2019 2:15 AM CDT): Holding metoprolol as above; will follow BP; may need another agent started pending her blood pressure and heart rate trend Tremor of both hands 03/26/2019 Assessment & Plan (03/26/2019 9:58 AM CDT): Has worsened on amiodarone. Will stop amiodarone. 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 Creatinine stable. 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 Will get PFTs. LFTs were improving will repeat and check TFTs Well child examination 12/20/2018 Assessment & Plan (07/15/2020 2:28 PM ABRASIVE COATING MACHINE OPERATOR): Creatinine less than 1.5. Continue Eliquis 5 mg twice daily Assessment & Plan (07/10/2019 2:39 PM ABRASIVE COATING MACHINE OPERATOR): Continue Eliquis 5 mg twice daily. Recent labs showed no anemia normal renal function Assessment & Plan (03/26/2019 9:57 AM CDT): Continue Eliquis 5 mg twice daily Assessment & Plan (12/20/2018 9:58 AM CDT): Perhaps still having asymptomatic PAF. Long-term anticoagulation indicated. Continue Eliquis 5 b.i.d. Morbid obesity 12/20/2018 Assessment & Plan (03/26/2019 9:57 AM CDT): Congratulated patient on more than 30 lb of weight loss Assessment & Plan (12/20/2018 9:58 AM CDT): Congratulated patient on a excellent result. Encouraged additional dieting and exercise Atrial fibrillation with slo w ventricular response (CMS/HCC) 08/15/2018 Assessment & Plan (07/15/2020 2:23 PM ABRASIVE COATING MACHINE OPERATOR): [place] extremely low. No indication for anti arrhythmic Assessment & Plan (01/08/2020 4:11 PM CDT): Only for episodes all less than 1 minute. Because of history of CVA will continue anticoagulation. No indication for antiarrhythmics Assessment & Plan (07/10/2019 2:48 PM ABRASIVE COATING MACHINE OPERATOR): [place] essentially 0 with only 2 mode switches maximum 12 seconds. No recommendation for antiarrhythmics may continue Eliquis for stroke prevention. Amiodarone already discontinued. Assessment & Plan (06/06/2019 10:30 AM ABRASIVE COATING MACHINE OPERATOR): Continue anticoagulation Assessment & Plan (05/02/2019 2:14 AM CDT): Has previously been on Multaq and amiodarone but at home only on metoprolol and Eliquis; both being held as above; will watch her HR on telemetry and adjust meds as necessary Assessment & Plan (03/26/2019 9:56 AM CDT): Asymptomatic. Slight decline in DLCO. See no real benefit to be on amiodarone. Will discontinue. Increased a.m. Metoprolol to 100 mg continue p.m. Dose of 50 mg. Assessment & Plan (12/20/2018 9:57 AM CDT): Has done excellent with switch to amiodarone and also with significant weight loss. Continue 200 mg daily. Will reassess long-term. She is not taking Multaq. Med list is inaccurate. Continue anticoagulation Angina pectoris 08/15/2018 Lymphadenopathy 08/04/2017 Immunizations Immunization Administration Dates Next Due Influenza, Unspecified 04/03/2019 Social History Tobacco Use Types Packs/Day Years Used Date Smoking Tobacco: Never Smokeless Tobacco: Never Tobacco Cessation:Counseling Given: Not Answered Alcohol Use Standard Drinks/Week Comments Never 0 (1 standard drink = 0.6 oz pur e alcohol) AUDIT-C Answer Date Recorded Q1: How often do you have a drink containing alc ohol? Never 04/19/2024 Average Number of Drinks Not on file 024 Frequency of Binge Drinking Not on file 04/03 Personal Safety Answer Date Recorded Have you ever been in or are you currently in a harmful physical or emotional relationship or is someone making you feel afraid or unsafe? Denies 10/14/2023 Comments Unknown Sex and Gender Information Value Date Recorded Sex Assigned at Not on file Legal Sex Female 8:32 PM ABRASIVE COATING MACHINE OPERATOR Gender Identity Female 04/21/2020 9:39 AM CDT Sexual Orientation Straight 04/21/2020 9: 38 AM CDT Last Filed Vital Signs Vital Sign Reading Time Taken Comments Blood Pressure 106/72 08/23/2024 9:54 AM ABRASIVE COATING MACHINE OPERATOR Pulse 55 08/23/2024 9:54 AM ABRASIVE COATING MACHINE OPERATOR Temperature 36.5 C (97.7 F) 04/19/2024 3:55 PM CDT Respiratory Rate 17 10/14/2023 7:05 PM CDT Oxygen Saturation 95% 08/23/2024 9:54 AM ABRASIVE COATING MACHINE OPERATOR Inhaled Oxygen Concentration - - Weight 70.4 kg (155 lb 1.6 oz) 08/23/2024 9:54 A M ABRASIVE COATING MACHINE OPERATOR Height 152.4 cm (5') 04/19/2024 3:55 PM CDT Body Mass Index 30.29 04/19/2024 3:55 PM CDT Plan of Treatment Not on file Procedures Procedure Name Priority Date/Time Associated Diagnosis Comments ECG 12-LEAD Routine 08/23/2024 9:44 AM ABRASIVE COATING MACHINE OPERATOR Longstanding persistent atrial fibrillation (HCC) COMPREHENSIVE METABOLIC PANEL Routine 07/25/2024 6:29 AM ABRASIVE COATING MACHINE OPERATOR Paroxysmal atrial fibrillation (HCC) High risk medication use Sinus node dysfunction (HCC) Atrial fibrillation with slow ventricular response (HCC) BASIC METABOLIC PANEL Routine 07/14/2024 11:06 AM ABRASIVE COATING MACHINE OPERATOR Paroxysmal atrial fibrillation (HCC) High risk medication use Sinus node dysfunction (HCC) Atrial fibrillation with slow ventricular response (HCC) from Last 3 Months Results * ECG 12 lead (08/23/2024 9:44 AM ABRASIVE COATING MACHINE OPERATOR) us Gavin Ricketts MD ECG ORDERABLES Final Resul t * (ABNORMAL) Comprehensive metabolic panel (07/25/2024 6:29 AM ABRASIVE COATING MACHINE OPERATOR) Glucose 87 65 - 99 mg/dL [facility] Comment: Fasting reference interval BUN 27(H) 7 - 25 mg/dL [facility] Creatinine 1.60(H) 0.60 - 0.95 mg/dL [facility] eGFR 32(L) > OR = 60 mL/min/1.7 3m2 [facility] BUN/creat ratio 17 6 - 22 (calc) [facility] Sodium 134(L) 135 - 146 mmol/L [facility] Potassium, pl 3.8 3.5 - 5.3 mmol/L [facility] Chloride 93(L) 98 - 110 mmol/L [facility] CO2 35(H) 20 - 32 mmol/L [facility] Calcium 9.1 8.6 - 10.4 mg/dL [facility] Protein, sr 6.3 6.1 - 8.1 g/dL [facility] Albumin 4.1 3.6 - 5.1 g/dL [facility] GLOBULIN 2.2 1.9 - 3.7 g/dL (calc) [facility] Alb/glob ratio 1.9 1.0 - 2.5 (calc) [facility] Bilirubin, total 0.6 0.2 - 1.2 mg/dL [facility] Alk phos 83 37 - 153 U/L [facility] AST 26 10 - 35 U/L [facility] ALT (SGPT) 91(H) 6 - 29 U/L [facility] Blood 07/25/2024 6:29 AM ABRASIVE COATING MACHINE OPERATOR 07/25/2024 6:29 AM ABRASIVE COATING MACHINE OPERATOR us Man Muñoz MD LAB BLOOD ORDERABLES [place] Result EMILIE [facility] [address] [place] [phone] * (ABNORMAL) Basic metabolic panel (07/14/2024 11:06 AM ABRASIVE COATING MACHINE OPERATOR) Glucose 98 65 - 139 mg/dL [facility] Comment: Non-fasting reference interval BUN 31(H) 7 - 25 mg/dL [facility] Creatinine 1.84(H) 0.60 - 0.95 mg/dL [facility] eGFR 27(L) > OR = 60 mL/min/1.7 3m2 [facility] BUN/creat ratio 17 6 - 22 (calc) [facility] Sodium 138 135 - 146 mmol/L [facility] Potassium, pl 4.5 3.5 - 5.3 mmol/L [facility] Chloride 95(L) 98 - 110 mmol/L [facility] CO2 36(H) 20 - 32 mmol/L [facility] Calcium 9.5 8.6 - 10.4 mg/dL [facility] Blood 07/14/2024 11:0 6 AM ABRASIVE COATING MACHINE OPERATOR 07/14/2024 11:06 AM ABRASIVE COATING MACHINE OPERATOR Narrative [facility] - 07/15/2024 5:21 AM ABRASIVE COATING MACHINE OPERATOR FASTING:NO FASTING: NO Man Muoñz MD LAB BLOOD ORDERABLES [place] Result [place] [address] [place] [phone] from Last 3 Months Insurance [employer] MED[employer]ARE MED[employer]ARE [employer]IONS FORMERLY [facility] MEDIC[facility] Advance Directives For more information, please contact: [phone] * Full Code (Latest Code Status on File) Date Activated Date Inactivated Comments 05/01/2019 8:55 PM 05/03/2019 6:29 PM Care Teams Electrical Test Technician Relationship Specialty Start Date End Date Jordyn Villa MD [address] [place] [address] PCP - General Family Medicine 07/15/20 Efren Navarrete MD Financial Recording Clerk Cardiovascular Disease 03/22/19 Chandler Mcdaniels MD Consulting Physician Neurology 05/02/19 Angel Ashton Jr., MD Consulting Physician Ophthalmology 05/02/19
--- OUTSIDE RECORDS SUMMARY | 2024-09-20 12:14 | XMS_ITS | Clinical Summary ---
Author Organization [facility] Address [address] [facility] [place] [address] Care Team Providers Care Level Vial Setter Name Role Phone Jordyn Villa MD Primary Care Provider +1- [phone] Allergies Active Allergy Reactions Criticality Noted Date Comments Adhesive Tape-Silicones Rash Medium 08/04/2017 Bacitracin Hives High 05/11/2019 Neomycin Sulfate Hives High 05/11/2019 Omeprazole Diarrhea Low 10/17/2019 Polymyxin B Hives High 05/11/2019 Medications furosemide (LASIX) 40 mg tablet Take 40 mg by mouth. 9 Active metoprolol tartrate (LOPRESSOR) 50 mg tablet Take 75 mg by mouth 3 times daily. 9 Active multivitamins with minerals Tablet Rx: Senior Multivitamin Plus Active acetaminophen 325 mg Capsule Activ e famotidine (PEPCID) 20 mg tablet Take 20 mg by mouth 2 times daily. Active MELATONIN ORAL Take by mouth. Active allopurinoL (ZYLOPRIM) 100 mg tablet TAKE 3 TABLETS BY MOUTH DAILY 2 Active calcitRIOL (ROCALTROL) 0.25 mcg capsule 2 Active calcitonin, [place], (FORTICAL) 200 unit/actuation [place], Non-Aerosol 1 [place] by See Admin Instructions route daily. 3 Active dronedarone (Multaq) 400 mg Tablet Take 1 Tablet by mouth 2 times daily with meals. 3 Active magnesium oxide 500 mg Capsule Take 250 mg by mouth daily. 2 Active Active Problems Problem Noted Date Diagnosed Date Masses of both breasts 08/06/2019 Lymphadenopathy 08/04/2017 Encounters Date Type Department Care Team Description 08/21/2024 External Device Data STL ABSTRACTION Provider, Abstract 07/26/2024 External Device Data STL ABSTRACTION Provider, Abstract 07/24/2024 External Device Data STL ABSTRACTION Provider, Abstract from Last 3 Months Family History Medical History Relation Name Comments Cancer Father Diabetes Father Heart Disease Father Diabetes Mother Heart Disease Mother Relation Name Status Comments Father Mother Sister Social History Tobacco Use Types Packs/Day Years Used Date Smoking Tobacco: Never Smokeless Tobacco: Never Tobacco Cessation:Counseling Given: Not Answered Alcohol Use Standard Drinks/Week Comments Yes 0 (1 standard drink = 0.6 oz pur e alcohol) Occasional Comments No Sex and Gender Information Value Date Recorded Sex Assigned at Not on file Legal Sex Female 4:42 AM PLANT ETIOLOGIST Gender Identity Not on file Sexual Orientation Not on file 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 Not on file Not on file Last Filed Vital Signs Vital Sign Reading Time Taken Comments Blood Pressure 132/64 03/21/2024 10:51 AM CDT Pulse 51 03/21/2024 10:51 AM CDT patient has pacemaker set at 50 Temperature 36.7 C (98 F) 03/21/2024 10:51 AM CDT Respiratory Rate 16 03/21/2024 10:5 1 AM CDT Oxygen Saturation 98% 03/21/2024 10: 51 AM CDT Inhaled Oxygen Concentration - - Weight 69.9 kg (154 lb) 03/21/2024 10:5 1 AM CDT Height 154.9 cm (5' 1 ) 03/04/2022 2:48 PM CDT Body Mass Index 29.1 03/04/2022 2:48 PM CDT Plan of Treatment Upcoming Encounters Date Type Department Care Team (Late st Contact Info) Description 03/21/2025 1:00 PM CDT Office Visit [facility] Oncology and Hematology - [place] [address] [place] [address] Perez Roberts MD [address] [facility] [address] [place] [address] Health Maintenance Due Date Last Done Comments DTAP/TDAP/TD VACCINES (1 - Tdap) 1960 PNEUMOCOCCAL VACCINE 50+ YEARS (1 of 1 - PCV) 04/08/19 91 ZOSTER VACCINE (1 of 2) 1991 OSTEOPOROSIS SCREENING 2006 RSV VACCINE (60+ or ) (1 - 1-dose 75+ series) 2016 INFLUENZA VACCINE (#1) 2024 Medicare Advantage ([place]) Prev entative Visit/Annual Wellness Visit 07/04/2024 Insurance [employer] PPO MCR Care Teams Level Vial Setter Relationship Specialty Start Date End Date Jordyn Villa MD PCP - General Family Practice 08/31/21
--- OUTSIDE RECORDS SUMMARY | 2024-09-20 12:14 | XMS_ITS | Encounter Summary ---
Author Organization [facility] Address [address] [place] [address] Care Team Providers Care Residential Treatment Specialist Name Role Phone oJrdyn Villa MD Primary Care Provider +1- [phone] Encounter Details Date Type Department Care Team (Late st Contact Info) Description 07/15/2002 Outpatient Historical [facility] Cali Lan MD [facility] [place] [id number] [place], Authorized P NO ADDRESS ON FILE BRACHIAL NEURITIS NOS (Primary Dx) Social History Tobacco Use Types Packs/Day Years Used Date Smoking Tobacco: Never Assessed Comments Unknown Sex and Gender Information Value Date Recorded Sex Assigned at Not on file Legal Sex Female 4:42 AM INTERACTIVE ACCOUNT MANAGER Gender Identity Not on file Sexual Orientation Not on file documented as of this encounter Plan of Treatment Upcoming Encounters Date Type Department Care Team (Late st Contact Info) Description 03/21/2025 1:00 PM CDT Office Visit [facility] Oncology and Hematology - [place] [address] [place] [address] [facility] [address] [place] [address] Perez Roberts MD [address] [facility] [address] [place] [address] documented as of this encounter Visit Diagnoses Diagnosis Brachial neuritis or radiculitis NOS- Primary Brachial neuritis or radiculitis nos documented in this encounter Care Teams Residential Treatment Specialist Relationship Specialty Start Date End Date Jordyn Villa MD PCP - General Family Practice 08/31/21 documented as of this encounter
--- OUTSIDE RECORDS SUMMARY | 2024-09-20 12:14 | XMS_ITS | Encounter Summary ---
Author Organization [facility] Address [address] [place] [address] Care Team Providers Care It Training Specialist Name Role Phone Jordyn Villa MD Primary Care Provider +1- [phone] Encounter Details Date Type Department Care Team (Latest Contact Info) Description 08/08/2002 Inpatient Historical [facility] Hai Ford MD [address] [facility] [address] [place] [address] CERVICAL SPONDYLOSIS (Primary Dx) Social History Tobacco Use Types Packs/Day Years Used Date Smoking Tobacco: Never Assessed Comments Unknown Sex and Gender Information Value Date Recorded Sex Assigned at Not on file Legal Sex Female 4:42 AM MATCH UP PERSON Gender Identity Not on file Sexual Orientation Not on file documented as of this encounter Plan of Treatment Upcoming Encounters Date Type Department Care Team (Late st Contact Info) Description 03/21/2025 1:00 PM CDT Office Visit [facility] Oncology and Hematology - [place] [address] [facility] [address] [place] [address] Perez Roberts MD [address] [facility] [address] [place] [address] documented as of this encounter Visit Diagnoses Diagnosis 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
--- OUTSIDE RECORDS SUMMARY | 2024-09-20 12:14 | XMS_ITS | Encounter Summary ---
Author Organization [facility] Facility Care Team Providers Care Bottom Loader Name Role Phone Mandeep Ozuna MD Primary Care Provider +1 [phone] Efren Navarrete MD Unavailable [phone] Chandler Mcdaniels MD Unavailable Poli Villagran MD, Angel Slade Unavailable [phone] Jordyn Villa MD Primary Care Provider Encounter Details Date Type Department Care Team (Latest Contact Info) Description 04/25/2017 Orders Only [facility] ProviderLow MD [address] [place] [address] Social History Tobacco Use Types Packs/Day Years Used Date Smoking Tobacco: Never Assessed Comments Unknown Sex and Gender Information Value Date Recorded Sex Assigned at Not on file Legal Sex Female 8:32 PM TURF MANAGER Gender Identity Female 04/21/2020 9:39 AM CDT Sexual Orientation Straight 04/21/2020 9: 38 AM CDT documented as of this encounter Plan of Treatment Not on file documented as of this encounter Procedures Procedure Name Priority Date/Time Associated Diagnosis Comments CARDIOLOGY REPORT 07/15/2017 12: 00 AM TURF MANAGER documented in this encounter Results * CARDIOLOGY REPORT (07/15/2017 12:00 AM TURF MANAGER) Anatomical Region Laterality Modality Other Narrative 07/15/2017 12:00 AM TURF MANAGER Ordered by an unspecified provider. us Historical Provider [facility] Final Result documented in this encounter Visit Diagnoses Not on filedocumented in this encounter Additional Health Concerns Infection Onset Date Last Indicated Resolved Time COVID: Suspected 10/14/2023 10/14/2023 10/14/2023 11:12 AM CDT documented as of this encounter Care Teams Bottom Loader Relationship Specialty Start Date End Date Mandeep Ozuna MD [address] [place] [address] PCP - General 08/16/18 07/14/20 Jordyn Villa MD [address] [place] [address] PCP - General Family Medicine 07/15/20 Efren Navarrete MD [address] [place] [address] Whipped Topping Finisher Cardiovascular Disease 03/22/19 Chandler Mcdaniels MD [address] [place] [address] Consulting Physician Neurology 05/02/19 Angel Ashton Jr., MD [address] [place] [address] Consulting Physician Ophthalmology 05/02/19 documented as of this encounter
--- OUTSIDE RECORDS SUMMARY | 2024-09-20 12:14 | XMS_ITS | Encounter Summary ---
Author Organization [facility] Address 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 FARM 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 Gender Identity Not on file Sexual Orientation Not on file documented as of this encounter Plan of Treatment Upcoming Encounters Date Type Department Care Team (Late st Contact Info) Description 03/21/2025 1:00 PM CDT Office Visit [facility] Oncology and Hematology - [place] [address] [facility] [address] [place] [address] Perez Roberts MD [address] [facility] [address] [place] [address] documented as of this encounter Visit Diagnoses Not on filedocumented in this encounter Care Teams Linoleum Layer Helper Relationship Specialty Start Date End Date Jordyn Villa MD PCP - General Family Practice 08/31/21 documented as of this encounter
--- OUTSIDE RECORDS SUMMARY | 2024-09-20 12:14 | XMS_ITS | Encounter Summary ---
Author Organization [facility] Address [address] [place] [address] Care Team Providers Care Cover Seamer Name Role Phone Jordyn Villa MD Primary Care Provider [phone]- [phone] Encounter Details Date Type Department Care Team (Late st Contact Info) Description 08/12/2002 Outpatient Historical [facility] [address] [place] [address] Alverto Quinones MD NO ADDRESS ON FILE Social History Tobacco Use Types Packs/Day Years Used Date Smoking Tobacco: Never Assessed Comments Unknown Sex and Gender Information Value Date Recorded Sex Assigned at Not on file Legal Sex Female 4:42 AM DRY HOUSE WHEELER Gender Identity Not on file Sexual Orientation Not on file documented as of this encounter Plan of Treatment Upcoming Encounters Date Type Department Care Team (Late st Contact Info) Description 03/21/2025 1:00 PM CDT Office Visit [facility] Oncology and Hematology - [place] [address] [facility] [address] [place] [address] Perez Roberts MD [address] [facility] [address] [place] [address] documented as of this encounter Visit Diagnoses Not on filedocumented in this encounter Care Teams Cover Seamer Relationship Specialty Start Date End Date Jordyn Villa MD PCP - General Family Practice 08/31/21 documented as of this encounter
--- OUTSIDE RECORDS SUMMARY | 2024-09-20 12:14 | XMS_ITS | Encounter Summary ---
Author Organization [facility] Facility Care Team Providers Care Cherry Sorter Name Role Phone Mandeep Ozuna MD Primary Care Provider [phone] Efren Navarrete MD Unavailable [phone] Chandler Mcdaniels MD Unavailable [phone] Poli Villagran MD, Angel Slade Unavailable Jordyn Villa MD Primary Care Provider Encounter Details Date Type Department Care Team (Latest Contact Info) Description 07/28/2017 Orders Only [facility] ProviderLow MD [address] [place] [address] Social History Tobacco Use Types Packs/Day Years Used Date Smoking Tobacco: Never Assessed Comments Unknown Sex and Gender Information Value Date Recorded Sex Assigned at Not on file Legal Sex Female 8:32 PM CORRECTIONAL OFFICER Gender Identity Female 04/21/2020 9:39 AM CDT Sexual Orientation Straight 04/21/2020 9: 38 AM CDT documented as of this encounter Plan of Treatment Not on file documented as of this encounter Procedures Procedure Name Priority Date/Time Associated Diagnosis Comments CARDIOLOGY REPORT 07/28/2017 12: 00 AM CORRECTIONAL OFFICER documented in this encounter Results * CARDIOLOGY REPORT (07/28/2017 12:00 AM CORRECTIONAL OFFICER) Anatomical Region Laterality Modality Other Narrative 07/28/2017 12:00 AM CORRECTIONAL OFFICER Ordered by an unspecified provider. us Historical Provider CV CARDIAC SERVICES VI RUSSO Final Result documented in this encounter Visit Diagnoses Not on filedocumented in this encounter Additional Health Concerns Infection Onset Date Last Indicated Resolved Time COVID: Suspected 10/14/2023 10/14/2023 10/14/2023 11:12 AM CDT documented as of this encounter Care Teams Cherry Sorter Relationship Specialty Start Date End Date Mandeep Ozuna MD [address] [place] [address] PCP - General 08/16/18 07/14/20 Jordyn Villa MD [address] [place] [address] PCP - General Family Medicine 07/15/20 Efren Navarrete MD [address] [place] [address] Enterprise Integration Developer Cardiovascular Disease 03/22/19 Chandler Mcdaniels MD [address] [place] [address] Consulting Physician Neurology 05/02/19 Angel Ashton Jr., MD [address] [place] [address] Consulting Physician Ophthalmology 05/02/19 documented as of this encounter
--- OUTSIDE RECORDS SUMMARY | 2024-09-20 12:14 | XMS_ITS | Encounter Summary ---
Author Organization [facility] Address [address] [place] [address] Care Team Providers Care Government Minister Name Role Phone Jordyn Villa MD Primary Care Provider [phone]- [phone] Encounter Details Date Type Department Care Team (Late st Contact Info) Description 08/11/2002 Outpatient Historical [facility] Adult Hospitalists [facility] [address] [place] [address] Andria Rudolph MD [facility] [place] [address] Social History Tobacco Use Types Packs/Day Years Used Date Smoking Tobacco: Never Assessed Comments Unknown Sex and Gender Information Value Date Recorded Sex Assigned at Not on file Legal Sex Female 4:[address] PRODUCTION MANAGER Gender Identity Not on file Sexual Orientation Not on file documented as of this encounter Plan of Treatment Upcoming Encounters Date Type Department Care Team (Late st Contact Info) Description 03/21/2025 1:00 PM CDT Office Visit [facility] Oncology and Hematology - [place] [address] [facility] [address] [place] [address] Perez Roberts MD [address] [facility] [address] [place] [address] documented as of this encounter Visit Diagnoses Not on filedocumented in this encounter Care Teams Government Minister Relationship Specialty Start Date End Date Jordyn Vlila MD PCP - General Family Practice 08/31/21 documented as of this encounter
--- OUTSIDE RECORDS SUMMARY | 2024-09-20 12:14 | XMS_ITS | Encounter Summary ---
Author Organization [facility] Address [address] [place] [address] Care Team Providers Care Supervisor Microfilm Duplicating Unit Name Role Phone Jordyn Villa MD Primary Care Provider [phone]- [phone] Encounter Details Date Type Department Care Team (Late st Contact Info) Description 08/16/2002 Outpatient Historical [facility] Adult Hospitalists [facility] [address] [place] [address] Lena Spence Social History Tobacco Use Types Packs/Day Years Used Date Smoking Tobacco: Never Assessed Comments Unknown Sex and Gender Information Value Date Recorded Sex Assigned at Not on file Legal Sex Female 4:42 AM ADVANCED NURSING PROFESSOR Gender Identity Not on file Sexual Orientation Not on file documented as of this encounter Plan of Treatment Upcoming Encounters Date Type Department Care Team (Late st Contact Info) Description 03/21/2025 1:00 PM CDT Office Visit [facility] Oncology and Hematology - [place] [address] [facility] [address] [place] [address] Perez Roberts MD [address] [facility] [address] [place] [address] documented as of this encounter Visit Diagnoses Not on filedocumented in this encounter Care Teams Supervisor Microfilm Duplicating Unit Relationship Specialty Start Date End Date Jordyn Villa MD PCP - General Family Practice 08/31/21 documented as of this encounter
--- OUTSIDE RECORDS SUMMARY | 2024-09-20 12:14 | XMS_ITS | Encounter Summary ---
Author Organization [facility] Address [address] [place] [address] Care Team Providers Care Leather Belt Loop Cutter Name Role Phone Jordyn Villa MD Primary Care Provider [phone]- [phone] Encounter Details Date Type Department Care Team (Late Contact Info) Description 08/11/2002 Outpatient Historical Division of Neurology [address] [facility] [address] [place] [address] (Excluded Provider) [place] [address] [facility] [address] [place] [address] Social History Tobacco Use Types Packs/Day Years Used Date Smoking Tobacco: Never Assessed Comments Unknown Sex and Gender Information Value Date Recorded Sex Assigned at Not on file Legal Sex Female 4:42 AM BUDGET TECHNICIAN Gender Identity Not on file Sexual Orientation Not on file documented as of this encounter Plan of Treatment Upcoming Encounters Date Type Department Care Team (Late Contact Info) Description 03/21/2025 1:00 PM CDT Office Visit [facility] Oncology and Hematology - [place] [address] [email or web address] [address] [place] [address] Perez Roberts MD [address] [facility] [address] [place] [address] documented as of this encounter Visit Diagnoses Not on filedocumented in this encounter Care Teams Leather Belt Loop Cutter Relationship Specialty Start Date End Date Jordyn Villa MD PCP - General Family Practice 08/31/21 documented as of this encounter
--- OUTSIDE RECORDS SUMMARY | 2024-09-20 12:14 | XMS_ITS | Encounter Summary ---
Author Organization [facility] Facility Care Team Providers Care Black Pickler Name Role Phone Mandeep Ozuna MD Primary Care Provider [phone] [phone] Efren Navarrete MD Unavailable [phone] Chandler Mcdaniels MD Unavailable Poli Villagran MD, Angel Slade Unavailable Jordyn Villa MD Primary Care Provider Encounter Details Date Type Department Care Team (Latest Contact Info) Description 06/08/2017 Orders Only [facility]IN[facility] ProviderLow MD [address] [place] [address] Social History Tobacco Use Types Packs/Day Years Used Date Smoking Tobacco: Never Assessed Comments Unknown Sex and Gender Information Value Date Recorded Sex Assigned at Not on file Legal Sex Female 8:32 PM TAX ECONOMIST Gender Identity Female 04/21/2020 9:39 AM CDT Sexual Orientation Straight 04/21/2020 9: 38 AM CDT documented as of this encounter Plan of Treatment Not on file documented as of this encounter Procedures Procedure Name Priority Date/Time Associated Diagnosis Comments SCAN - LABS 07/15/2017 12:00 AM TAX ECONOMIST documented in this encounter Results * SCAN - LABS (07/15/2017 12:00 AM TAX ECONOMIST) Narrative 07/15/2017 12:00 AM TAX ECONOMIST Ordered by an unspecified provider. us Historical Provider Final Res ult documented in this encounter Visit Diagnoses Not on filedocumented in this encounter Additional Health Concerns Infection Onset Date Last Indicated Resolved Time COVID: Suspected 10/14/2023 10/14/2023 10/14/2023 11:12 AM CDT documented as of this encounter Care Teams Black Pickler Relationship Specialty Start Date End Date Mandeep Ozuna MD [address] [place] [address] PCP - General 08/16/18 07/14/20 Jordyn Villa MD [address] [place] [address] PCP - General Family Medicine 07/15/20 Efren Navarrete MD [address] [place] [address] Legal Project Manager Cardiovascular Disease 03/22/19 Chandler Mcdaniels MD [address] [place] [address] Consulting Physician Neurology 05/02/19 Angel Ashton Jr., MD [address] [place] [address] Consulting Physician Ophthalmology 05/02/19 documented as of this encounter
--- OUTSIDE RECORDS SUMMARY | 2024-09-20 12:14 | XMS_ITS | Encounter Summary ---
Author Organization [facility] Address [address] [place] [address] Care Team Providers Care Sheep Killer Name Role Phone Jordyn Villa MD Primary Care Provider +1- [phone] Encounter Details Date Type Department Care Team (Late st Contact Info) Description 08/13/2002 Outpatient Historical [facility] Adult Critical Care [address] [address] Kym Rubin MD Social History Tobacco Use Types Packs/Day Years Used Date Smoking Tobacco: Never Assessed Comments Unknown Sex and Gender Information Value Date Recorded Sex Assigned at Not on file Legal Sex Female 4:42 AM SILVERWARE ETCHER Gender Identity Not on file Sexual Orientation Not on file documented as of this encounter Plan of Treatment Upcoming Encounters Date Type Department Care Team (Late st Contact Info) Description 03/21/2025 1:00 PM CDT Office Visit [facility] Oncology and Hematology - [place] [address] [facility] [address] [place] [address] Perez Roberts MD [address] [facility] [address] [place] [address] documented as of this encounter Visit Diagnoses Not on filedocumented in this encounter Care Teams Sheep Killer Relationship Specialty Start Date End Date Jordyn Villa MD PCP - General Family Practice 08/31/21 documented as of this encounter
--- OUTSIDE RECORDS SUMMARY | 2024-09-20 12:14 | XMS_ITS | Encounter Summary ---
Author Organization [facility] Address [address] [place] [address] Care Team Providers Care Air Intercept Controller Supervisor Name Role Phone Jordyn Villa MD Primary Care Provider +1- [phone] Encounter Details Date Type Department Care Team (Late st Contact Info) Description 08/17/2002 Outpatient Historical [facility] [address] [address] Boo Le MD Social History Tobacco Use Types Packs/Day Years Used Date Smoking Tobacco: Never Assessed Comments Unknown Sex and Gender Information Value Date Recorded Sex Assigned at Not on file Legal Sex Female 4:42 AM ELECTRIC MOTOR CONTROL ASSEMBLER Gender Identity Not on file Sexual Orientation Not on file documented as of this encounter Plan of Treatment Upcoming Encounters Date Type Department Care Team (Late st Contact Info) Description 03/21/2025 1:00 PM CDT [facility] Visit [facility] Hematology - [place] [address] [facility] [address] [place] [address] Perez Roberts MD [address] [facility] [address] [place] [address] documented as of this encounter Visit Diagnoses Not on filedocumented in this encounter Care Teams Air Intercept Controller Supervisor Relationship Specialty Start Date End Date Jordyn Villa MD PCP - General Family Practice 08/31/21 documented as of this encounter
--- OUTSIDE RECORDS SUMMARY | 2024-09-20 12:14 | XMS_ITS | Encounter Summary ---
Author Organization [facility] Address [address] [place] [address] Care Team Providers Care Racebook Writer Name Role Phone Jordyn Villa MD Primary Care Provider +1- [phone] Encounter Details Date Type Department Care Team (Late st Contact Info) Description 08/15/2002 Outpatient Historical [facility] [address] [place] [address] Efren Mcqueen MD NO ADDRESS ON FILE Social History Tobacco Use Types Packs/Day Years Used Date Smoking Tobacco: Never Assessed Comments Unknown Sex and Gender Information Value Date Recorded Sex Assigned at Not on file Legal Sex Female 4:42 AM PULL OVER Gender Identity Not on file Sexual Orientation Not on file documented as of this encounter Plan of Treatment Upcoming Encounters Date Type Department Care Team (Late st Contact Info) Description 03/21/2025 1:00 PM CDT Office Visit [facility] Oncology and Hematology - [place] [address] [facility] [address] [place] [address] Perez Roberts MD [address] [facility] [address] [place] [address] documented as of this encounter Visit Diagnoses Not on filedocumented in this encounter Care Teams Racebook Writer Relationship Specialty Start Date End Date Jordyn Villa MD PCP - General Family Practice 08/31/21 documented as of this encounter
--- OUTSIDE RECORDS SUMMARY | 2024-09-20 12:14 | XMS_ITS | Encounter Summary ---
Author Organization [facility] Address [address] [place] [address] Care Team Providers Care Rn Or Lpn Name Role Phone Jordyn Villa MD Primary Care Provider +1- [phone] Encounter Details Date Type Department Care Team (Late st Contact Info) Description 08/11/2002 Outpatient Historical [facility] ([facility]) [address] [place] [phone] Alverto Quinones MD NO ADDRESS ON FILE Social History Tobacco Use Types Packs/Day Years Used Date Smoking Tobacco: Never Assessed Comments Unknown Sex and Gender Information Value Date Recorded Sex Assigned at Not on file Legal Sex Female 4:42 AM INJECTION MOLDER Gender Identity Not on file Sexual Orientation Not on file documented as of this encounter Plan of Treatment Upcoming Encounters Date Type Department Care Team (Late st Contact Info) Description 03/21/2025 1:00 PM CDT Office Visit [facility] Oncology and Hematology - [place] [address] [facility] [address] [place] [address] Perez Roberts MD [address] [facility] [address] [place] [address] documented as of this encounter Visit Diagnoses Not on filedocumented in this encounter Care Teams Rn Or Lpn Relationship Specialty Start Date End Date Jordyn Villa MD PCP - General Family Practice 08/31/21 documented as of this encounter
--- OUTSIDE RECORDS SUMMARY | 2024-09-20 12:14 | XMS_ITS | Encounter Summary ---
Author Organization [facility] Address [address] [place] [address] Care Team Providers Care Tower Cleaner Name Role Phone Jordyn Villa MD Primary Care Provider +1- [phone] Encounter Details Date Type Department Care Team (Late st Contact Info) Description 08/11/2002 Outpatient Historical [facility] Adult Critical Care [facility] [address] [place] [address] Asher Eaton MD [address] [place], [place] [id number] Social History Tobacco Use Types Packs/Day Years Used Date Smoking Tobacco: Never Assessed Comments Unknown Sex and Gender Information Value Date Recorded Sex Assigned at Not on file Legal Sex Female 4:42 AM MAINTENANCE WELDER Gender Identity Not on file Sexual Orientation Not on file documented as of this encounter Plan of Treatment Upcoming Encounters Date Type Department Care Team (Late st Contact Info) Description 03/21/2025 1:00 PM CDT Office Visit [facility] Oncology and Hematology - [place] [address] [facility] [address] [place] [address] Perez Roberts MD [address] [facility] [address] [place] [address] documented as of this encounter Visit Diagnoses Not on filedocumented in this encounter Care Teams Tower Cleaner Relationship Specialty Start Date End Date Jordyn Villa MD PCP - General Family Practice 08/31/21 documented as of this encounter
--- OUTSIDE RECORDS SUMMARY | 2024-09-20 12:14 | XMS_ITS | Clinical Summary ---
Author Organization [facility] Address [address] [place] [address] Care Team Providers Care Products Mechanical Design Engineer Name Role Phone Efren Navarrete MD Unavailable Chandler Mcdaniels MD Unavailable Poli Villagran MD, Angel Slade Unavailable Jordyn Villa MD Primary Care Provider Allergies Active Allergy Reactions Criticality Noted Date Comments Adhesive Tape-Silicones Rash Medium 08/04/2017 Neomycin Hives,Rash High 05/11/2019 Rash Vhigtvjj-Lxiulpxbeo-Panlwptjk Unknown Omeprazole Diarrhea Low 10/17/2019 Polymyxin B [...] FIND Administer 1 each into both eyes application specialist before breakfast Med Name: Sodium chloride Ophthalmic [...] days 28 tablet 06/12/20 24 025 Discontin ued(Lauren reva order) Active Problems Problem Noted Date Diagnosed Date long-term current use of anticoagulant 4 Paroxysmal atrial fibrillation 05/02/2023 Atrial flutter 05/02/2023 Sinus node dysfunction 10/26/2022 Abnormality in other liver function test 021 Congestive heart failure wit h left ventricular diastolic dysfunction 03/11/2021 Edema of left lower extremity 03/11/2021 Functional weakness 03/11/2021 Hyperosmolar hyponatremia 03/11/2021 International normalized ratio (INR) raised 02/2021 Syncope and collapse 03/11/2021 Thigh cramp 03/11/2021 Masses of both breasts 08/06/2019 High risk medication use 07/10/2019 Assessment & Plan (01/08/2020 4:12 PM CDT): No bleeding. Continue Eliquis. Digoxin already stopped Assessment & Plan (07/10/2019 2:50 PM LIQUID LOADER): Not having any AFib. Probably do not need metoprolol diltiazem and digoxin. CKD so will stop ditch. Pacemaker 06/06/2019 Assessment & Plan (07/15/2020 2:22 PM LIQUID LOADER): Check today shows underlying rhythm sinus bradycardia. 95% a pace no V pacing excellent lead function. Battery 8 years. Assessment & Plan (01/08/2020 4:11 PM CDT): Check shows normal function. Underlying rhythm sinus bradycardia. 100% a pace no V pacing. Excellent lead function better life. Assessment & Plan (07/10/2019 2:38 PM LIQUID LOADER): Check today shows normal function. Underlying rhythm atrial standstill. 100% a pace no V pacing excellent lead function. Battery 9 years. Assessment & Plan (06/06/2019 10:31 AM LIQUID LOADER): [employer] implanted May 19 for tachy-rick. Healing well. Doing well Acute CVA (cerebrovascular accident) 05/02/2019 Assessment & Plan (07/13/2019 11:07 AM LIQUID LOADER): The patient is a 79-year-old female with [...] on tele -- Consult neuro - the [place] stroke physician felt this was likely to be embolic. He suggested holding anticoagulation for now and checking a Xa level to assess for compliance with Eliquis - she denies missing any doses and her INR was elevated suggesting compliance Bradycardia 05/02/2019 Assessment & Plan (07/15/2020 2:28 PM LIQUID LOADER): Histograms okay Assessment & Plan (05/02/2019 2:12 [...] 05/02/2019 Assessment & Plan (07/15/2020 2:28 PM LIQUID LOADER): Well controlled Assessment & Plan (01/08/2020 4:12 PM CDT): Well controlled Assessment & Plan (07/10/2019 2:48 PM LIQUID LOADER): Continue metoprolol and diltiazem Assessment & Plan (05/02/2019 2:15 AM CDT): Holding metoprolol as above; will follow BP; may need another agent started pending her blood pressure and heart rate trend Tremor of both hands 03/26/2019 Assessment & Plan (03/26/2019 9:58 AM CDT): Has worsened on amiodarone. Will stop amiodarone. 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 Creatinine stable. 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 Will discontinue Assessment & Plan (12/20/2018 9:57 AM CDT): Again discussed with patient she has an town planner will make a follow-up appointment. Will get PFTs. LFTs were improving will repeat and check TFTs Well child examination 12/20/2018 Assessment & Plan (07/15/2020 2:28 PM LIQUID LOADER): Creatinine less than 1.5. Continue Eliquis 5 mg twice daily Assessment & Plan (07/10/2019 2:39 PM LIQUID LOADER): Continue Eliquis 5 mg twice daily. Recent [...] 08/15/2018 Assessment & Plan (07/15/2020 2:23 PM LIQUID LOADER): Harrison extremely low. No indication for anti arrhythmic Assessment & Plan (01/08/2020 4:11 PM CDT): Only for episodes all less than 1 minute. Because of history of CVA will continue anticoagulation. No indication for antiarrhythmics Assessment & Plan (07/10/2019 2:48 PM LIQUID LOADER): Harrison essentially 0 with only 2 mode switches maximum 12 seconds. No recommendation for antiarrhythmics may continue Eliquis for stroke prevention. Amiodarone already discontinued. Assessment & Plan (06/06/2019 10:30 AM LIQUID LOADER): Continue anticoagulation Assessment & Plan (05/02/2019 2:14 [...] Continue anticoagulation Angina pectoris 08/15/2018 Lymphadenopathy 08/04/2017 Encounters Date Type Department Care Team Description 09/05/2024 8:00 AM LIQUID LOADER Ancillary Procedure [facility] Cardiology [address] [place] [phone] Pacemaker; Sinus node dysfunction (HCC); PAF (paroxysmal atrial fibrillation) (HCC); Atrial flutter, unspecified type (HCC); PVC (premature ventricular contraction) 08/23/2024 9:45 AM LIQUID LOADER Office Visit [facility] Cardiology [address] [place] [phone] Gavin Ricketts MD Longstanding persistent atrial fibrillation (HCC) (Primary Dx); Essential hypertension, benign; Pacemaker 08/23/2024 Orders Only [facility] [address] [place] [phone] Gavin Ricketts MD Sinus node dysfunction (HCC) (Primary Dx); Pacemaker; Atrial fibrillation with slow ventricular response (HCC); Atrial flutter, unspecified type (HCC) 07/17/2024 Telephone [facility] [address] [place] [phone] Man Muñoz MD from Last 3 Months Immunizations Immunization Administration Dates Next Due Influenza, Unspecified 04/03/2019 Surgical History Surgery Date Site/Laterality Comments CERVICAL FUSION 07/04/2002 - 07/03/2003 REPLACEMENT TOTAL KNEE BILATERAL 07/04/2008 - 07/03/2009 COLONOSCOPY 09/10/2019 CATARACT EXTRACTION JOINT REPLACEMENT double knee 2009 SPINE SURGERY cervical fussion Aug 2002 Medical History Medical History Date Comments A-fib (HCC) HTN (hypertension) Rbbb Dyslipidemia Elevated serum creatinine Acute renal failure Chronic kidney disease, stage III (moderate) (HC C) Hyperkalemia Secondary hyperparathyroidism TIA (transient ischemic attack) Arthritis over 20 yr Cataract Heart disease Sleep apnea Stroke (HCC) Apr 2019 Family History Medical History Relation Name Comments COPD Father Efren Galvez Cancer Father Efren Galvez Diabetes Father Efren Galvez Heart disease Father Efren Galvez Arthritis Mother Maribell Galvez Diabetes Mother Maribell Galvez Hearing loss Mother Maribell Galvez Heart disease Mother Maribell Galvez Hypertension Mother Maribell Galvez Stroke Mother Maribell Galvez Relation Name Status Comments Father Efren Galvez Mother Maribell Galvez Social History Tobacco Use Types Packs/Day Years [...] on file Legal Sex Female 8:32 PM LIQUID LOADER Gender Identity Female 04/21/2020 9:39 AM CDT Sexual Orientation Straight 04/21/2020 9: 38 AM CDT Obstetrics History Last Filed Vital Signs Vital Sign Reading Time Taken Comments Blood Pressure 106/72 08/23/2024 9:54 AM LIQUID LOADER Pulse 55 08/23/2024 9:54 AM LIQUID LOADER Temperature 36.5 C (97.7 F) 04/19/2024 3:55 PM CDT Respiratory Rate 17 10/14/2023 7:05 PM CDT Oxygen Saturation 95% 08/23/2024 9:54 AM LIQUID LOADER Inhaled Oxygen Concentration - - Weight 70.4 kg (155 lb 1.6 oz) 08/23/2024 9:54 A M LIQUID LOADER Height 152.4 cm (5') 04/19/2024 3:55 PM CDT Body Mass Index 30.29 04/19/2024 3:55 PM CDT Plan of Treatment Health Maintenance Due Date Last Done Comments Depression Screening 1941 Fall Risk Assessment 1941 Osteoporosis Screening-Bone Density Scan 1941 Hepatitis B Screening 1959 Well Visit 65+ 2006 Pneumococcal vaccine 65+ (2 of 2 - PCV) 04/24/2021 04/24/2020 Covid-19 Vaccine (3 - 2023-2 5 season) 2024 09/04/2020, 08/07/2020 Influenza Vaccine (#1) 2024 , 04/09/2020, 04/13/2019, Additional history exists DTaP/Tdap/Td Vaccine (2 - Td or Tdap) 04/30/2030 04/30/2020 Zoster Vaccine Completed 12/26/2020, 10/02/2020 Procedures Procedure Name Priority Date/Time Associated Diagnosis Comments ECG 12-LEAD Routine 08/23/2024 9:44 AM LIQUID LOADER Longstanding persistent atrial fibrillation (HCC) COMPREHENSIVE METABOLIC PANEL Routine 07/25/2024 6:29 AM LIQUID LOADER Paroxysmal atrial fibrillation (HCC) High risk medication use Sinus node dysfunction (HCC) Atrial fibrillation with slow ventricular response (HCC) BASIC METABOLIC PANEL Routine 07/14/2024 11:06 AM LIQUID LOADER Paroxysmal atrial fibrillation (HCC) High risk medication use Sinus node dysfunction (HCC) Atrial fibrillation with slow ventricular response (HCC) from Last 3 Months Results * ECG 12 lead (08/23/2024 9:44 AM LIQUID LOADER) us Gavin Ricketts MD ECG ORDERABLES Final Resul t * (ABNORMAL) Comprehensive metabolic panel (07/25/2024 6:29 AM LIQUID LOADER) Glucose 87 65 - 99 mg/dL [facility] [...] [facility] Blood 07/25/2024 6:29 AM LIQUID LOADER 07/25/2024 6:29 AM LIQUID LOADER us Man Muñoz MD LAB BLOOD ORDERABLES [place] Result [facility] [address] [place] [phone] * (ABNORMAL) Basic metabolic panel (07/14/2024 11:06 AM LIQUID LOADER) Glucose 98 65 - 139 mg/dL [facility] 07/14/2024 11:0 6 AM LIQUID LOADER 07/14/2024 11:06 AM LIQUID LOADER Narrative [facility] - 07/15/2024 5:21 AM LIQUID LOADER FASTING:NO FASTING: NO us Man Muñoz MD LAB BLOOD ORDERABLES [place] Result [facility] [address] [place] [address] from Last 3 Months Insurance [facility] MEDICARE MEDICARE [facility] MEDIC[facility] Address: [address] [address] [place] [address] [facility] MEDICARE Advance Directives For more information, please contact: [phone] * Full Code (Latest Code Status on File) Date Activated Date Inactivated Comments 05/01/2019 8:55 PM 05/03/2019 6:29 PM Care Teams Products Mechanical Design Engineer Relationship Specialty Start Date End Date Jordyn Villa MD [address] [facility] [address] [place] [address] PCP - General Family Medicine 07/15/20 Efren Navarrete MD Professor Of Theater Cardiovascular Disease 03/22/19 Chandler Mcdaniels MD Consulting Physician Neurology 05/02/19 Angel Ashton Jr., MD Consulting Physician Ophthalmology 05/02/19
== END 2024-09-20 11:16 | disposition home or self-care (01) ==
PROVIDERS: PCP Family Medicine; Visit Provider Internal Medicine Hematology & Oncology
DX: R92.8 Other abnormal and inconclusive findings on diagnostic imaging of breast (principal)
CPT/HCPCS: 77062; 77066; G0279

== ENCOUNTER 2024-12-14 16:49 | Emergency (ER) | payer MEDICARE, SELFPAY ==
--- NOTE | ~2024-12-14 | XR_ITS ---
3 VIEWS THORACIC SPINE Ordering provider: Silvia Pena APRN History: . mid upper back pain s/p fall today . Comparison: None. FINDINGS: VERTEBRAL BODIES: Normal height and alignment. No visible fracture or subluxation. Degenerative escamilla es of the spine. Levoscoliosis. DISK SPACES: Multilevel degenerative disc disease. SOFT TISSUES: Normal. IMPRESSION: No acute osseous abnormality of the thoracic spine. Multilevel degenerative disc disease. Reviewed, dictated and finalized at location A.
--- NOTE | 2024-12-14 16:54 | ED_ITS ---
HPI - Back Pain/Injury General Chief Complaint: Back Pain/Injury Stated Complaint: fell on back Time Seen by Provider: 12/14/24 16:58 Source: patient, RN notes reviewed and old records reviewed Mode of arrival: ambulatory Limitations: no limitations History of Present Illness HPI Narrative: 84-year-old [facility]. Patient states at noon today she missed a step slipped, fell backwards hitting her mid back on a step. Related Data Home Medications ?Medication ?Instructions ?Recorded ?Confirmed ?Last Taken ?Type melatonin 10 mg capsule mg PO 08/12/20 10/17/24 Unknown History qfvenumn-cjoeyia-cjqx-lutein tablet tablet PO 08/12/20 10/17/24 Unknown History magnesium oxide 500 mg capsule 500 mg PO DAILY 04/01/22 10/17/24 Unknown History metoprolol tartrate 100 mg tablet mg PO BID 08/10/24 10/17/24 Unknown History Allergies Allergy/AdvReac Type Severity Reaction Status Date / Time adhesive Allergy Severe RASH Verified 12/14/24 17:30 neomycin Allergy Severe RASH Verified 12/14/24 17:30 bacitracin Allergy Unknown Rash Verified 12/14/24 17:30 polymyxin B Allergy Unknown Rash Verified 12/14/24 17:30 alendronate sodium AdvReac Intermediate Chills Verified 12/14/24 17:30 omeprazole AdvReac Intermediate Diarrhea Verified 12/14/24 17:30 Review of Systems 2 Review of Systems: All systems reviewed & are unremarkable except as noted in HPI and below Constitutional: Constitutional: Reports no additional constitutional complaints ENT: Reports system reviewed and no additional complaints, except as documented Cardiovascular: Cardiovascular: Reports no additional cardiovascular complaints, Denies chest pain and Denies dyspnea Respiratory: Respiratory: Reports no additional respiratory complaints, Denies chest congestion, Denies cough and Denies dyspnea Musculoskeletal: Musculoskeletal: Reports as per HPI Integumentary/Breasts: Skin/Breast: Reports system reviewed and no additional complaints, except [facility] docu [facility] Past Medical History Medical History Olecranon bursitis of right elbow Cellulitis of knee, right Contusion of elbow, right Contusion of knee, right Anal warts Verruca plana Mass of anus Encounter for surgical aftercare following surgery on the digestive system Anal skin tag Anal fissure Wrist pain, right YVES on CPAP Osteoarthritis Aphasia S/P CVA Skin tag of perianal region Anal warts PAF (paroxysmal atrial fibrillation) Pacemaker Stroke Heart failure Kidney failure Surgical History Surgical History H/O cervical spinal arthrodesis History of knee replacement bilateral Family History Family History Father Diabetes mellitus Family history of cardiovascular disease Family history of lung cancer Mother Diabetes mellitus Family history of cardiovascular disease Social History Social History Social History: Single Smoking status: Never smoker Second hand tobacco smoke exposure: No Alcohol intake: former Substance use: never Substance use type: does not use Do You Feel Safe in your Home?: Yes Lack of Transportation: No Lack of Food: Never True Current Housing: I Have Housing Concerned About Future Housing: No Difficulty Paying Gas/Electric Bills: No Difficulty Paying for Meds: No Currently Unemployed: YES Education: Don't Know Difficulty w/ Childcare or Family Care: No Living arrangements: alone Occupation/Education: retired Gender identity (if verbalized by the patient): Female Sexual Orientation (if Verbalized by the Patient): Straight or Heterosexual Comments At the time of my signature, I reviewed and agree with the nursing past medical, surgical, social, and family history. There is no relevant family history pertinent to the patient complaint. Exam 2 Const: General: cooperative, healthy appearing, comfortable, no acute distress, well developed, alert and well nourished Nutritional Appearance: w ell nourished Orientation/consciousness: patient oriented x3 Limitations: no limitations HENMT: Head: normal to inspection Eyes: General: appearance normal, both eyes and all related structures A lignment and Position: alignment normal Neck: Neck: normal visual inspection, full ROM, no lymphadenopathy and no meningeal signs Chest: Chest palpation & inspection: normal inspection of the chest Resp: Effort & Inspection: normal respiratory effort and able to speak in complete sentences Auscultation: clear to auscultation bilaterally, no crackles, no rales, no rhonchi and no wheezes Cardio: Rate: regular rate Back/Spine/Pelvis: Back: back tenderness Cervical Spine: normal cervical lordosis, cervical ROM normal, No cervical muscular tenderness and No Cervical spine tenderness Thoracic/Lumbar Spine: paraspinal muscle tenderness bilaterally in the lower thoracic, No thoraco-lumbar spasm, thoracic spinal tenderness and No lumbar spinal tenderness Back/spine/pelvis image: 1. No ecchymosis, erythema or swelling noted. Pain with movement and palpation. Skin: General skin exam: normal color and no rashes or lesions noted Neuro: General: patient oriented x3, gait normal, moves all extremities and no meningeal signs Cognition (Neuro): normal cognition Speech: normal speech Gait exam (Neuro): Normal gait present Extrem: General: normal to inspection, full ROM, capillary refill normal and normal gait Psych: Appearance: grossly normal and well kempt Mental Status: mental status grossly normal Speech and movement: Normal speech and movement present and Clear speech present Affect: normal affect Attitude: cooperative Course Course Level of Care: Express Care Visit Vital Signs Vital signs: Vital Signs Temperature 97.0 F L 12/14/24 17:10 Pulse Rate 70 12/14/24 17:10 Respiratory Rate 16 12/14/24 17:10 Blood Pressure 149/77 H 12/14/24 17:10 Pulse Oximetry 98 12/14/24 17:10 Oxygen Delivery Room Air 12/14/24 17:10 Temperature 97.0 F L 12/14/24 17:10 Pulse Rate 70 12/14/24 17:10 Respiratory Rate 16 12/14/24 17:10 Blood Pressure 149/77 H 12/14/24 17:10 Pulse Oximetry 98 12/14/24 17:10 Oxygen Delivery Room Air 12/14/24 17:10 Reviewed MDM - Back Pain/Injury MDM Narrative Medical decision making narrative: Patient sitting in exam room. Patient is nontoxic, vitals are stable. Patient presents with back pain post fall. No neurologic deficits noted. Patient with back pain, x-ray is negative. Patient reports that she does have a muscle relaxer at home. Patient appropriate for outpatient treatment with close follow-up Discharge instructions reviewed with patient, as well as provided in writing per nursing staff. The instructions also include specific and strict return/GO TO THE ER as well as f/u information. All questions have been answered, and the patient deny any further questions with discharge and discharge plan. Some parts of this dictation were generated by voice recognition software and may contain typographical and/or grammatical inaccuracies. Differential Diagnosis Differential diagnosis: Likely strain of lumbar region, renal colic, pyelonephritis and thoracic back pain Imaging Data Radiologist's impression: 3 VIEWS THORACIC SPINE Ordering provider: Silvia Pena APRN History: . mid upper back pain s/p fall today . Comparison: None. FINDINGS: VERTEBRAL BODIES: Normal height and alignment. No visible fracture or subluxation. Degenerative changes of the spine. Levoscoliosis. DISK SPACES: Multilevel degenerative disc disease. SOFT TISSUES: Normal. IMPRESSION: No acute osseous abnormality of the thoracic spine. Multilevel degenerative disc disease. Critical Care Time Critical Care Time Critical Care Time: No Discharge Plan Discharge Clinical Impression: Back pain Patient Disposition: Home Condition: Stable Instructions: Antibiotic Form, Back Pain (ED) Additional Instructions: Take Tylenol as needed for pain Take methocarbamol (muscle relaxer) as directed. Do not drink, drive, operate machinery, or do anything dangerous while taking this medication Exercise:Combine aerobic exercise, like walking or swimming, with specific exercises to keep the muscles in your back and abdomen strong and flexible. Proper Lifting:Be sure to lift heavy items with your legs, not your back. Do not bend over to pick something up. Keep your back straight and bend at your knees. Weight:Maintain a healthy weight. Being overweight puts added stress on your lower back. Avoid Smoking:Both the smoke and the nicotine cause your spine to age faster than normal. Proper Posture:Good posture is important for avoiding future problems. A therapist can teach you how to safely stand, sit, and lift. Use warm moist heat to help with pain. Using topical such as Biofreeze, Paddy-Abdi or Aspercreme can also help Follow up with Primary provider in 2-3 days, This may become a chronic condition and they will be the one to help manage your pain and order additional testing. Go to the nearest ER if you develop problems with bladder/bowel function, weakness or loss of feeling in one or both of your legs. Patient Language: Jordanian Prescriptions: No Action metoprolol tartrate 100 mg tablet PO BID melatonin 10 mg capsule PO erfcprhl-sjwvtqh-cxup-lutein Tablet PO magnesium oxide 500 mg capsule 500 mg PO DAILY amlodipine [Norvasc] 5 mg tablet 5 mg PO DAILY Qty: 30 5RF famotidine 20 mg tablet See Rx Instructions .ROUTE .COMPLEX Qty: 90 3RF Dose Instruction: TAKE 1 TABLET BY MOUTH EVERY DAY Rx Instructions: TAKE 1 TABLET BY MOUTH EVERY DAY methocarbamol 500 mg tablet 1,000 mg PO TID PRN (Reason: back muscle spasm) Qty: 30 0RF Rx Instructions: 1-2 tablets as needed Eliquis 5 mg tablet See Rx Instructions .ROUTE .COMPLEX Qty: 60 5RF Dose Instruction: TAKE 1 TABLET BY MOUTH TWICE A DAY Rx Instructions: TAKE 1 TABLET BY MOUTH TWICE A DAY furosemide 40 mg tablet See Rx Instructions .ROUTE .COMPLEX Qty: 90 1RF Dose Instruction: TAKE 1 TABLET BY MOUTH EVERY DAY IN THE MORNING Rx Instructions: TAKE 1 TABLET BY MOUTH EVERY DAY IN THE MORNING calcitonin (salmon) 200 unit/actuation spray,non-aerosol See Rx Instructions .ROUTE .COMPLEX Qty: 3.7 1RF Dose Instruction: 1 SPRAY INTRANASALLY INTO ONE NOSTRIL(ALTERNATE) DAILY Rx Instructions: 1 SPRAY INTRANASALLY INTO ONE NOSTRIL(ALTERNATE) DAILY Follow-up/Referrals: Juan Perez MD [Primary Care Provider] - 2 Weeks ([facility] care follow [facility]) Time of Disposition: 17:21
[2024-12-14 17:10] VITALS: BP 149/77; PULSE 70; RESP 16; TEMP 36.1; O2SAT 98
== END 2024-12-14 17:25 | disposition home or self-care (01) ==
PROVIDERS: Emergency Provider Nurse Practitioner; PCP Family Medicine
DX: M54.6 Pain in thoracic spine (principal); G47.33 Obstructive sleep apnea (adult) (pediatric); M19.90 Unspecified osteoarthritis, unspecified site; I50.9 Heart failure, unspecified; I69.320 Aphasia following cerebral infarction; I48.0 Paroxysmal atrial fibrillation; Z95.0 Presence of cardiac pacemaker; Z96.653 Presence of artificial knee joint, bilateral
CPT/HCPCS: 72072; 99213; G0463

== ENCOUNTER 2025-03-21 12:45 | Outpatient (CLI) | payer MEDICARE, SELFPAY ==
--- OUTSIDE RECORDS SUMMARY | 2025-03-21 12:48 | XMS_ITS | Encounter Summary ---
Author Organization [facility] Address [address] [place] [address] Care Team Providers Care Stock Hanger Name Role Phone Jordyn Villa MD Primary Care Provider [phone] Encounter Details Date Type Department Care Team (Late st Contact Info) Description 08/11/2002 Outpatient Historical [facility] [place], [place] Support Serv. (Adt Cardiology-[facility]) [address] [place] [phone] Alverto Quinones MD NO ADDRESS ON FILE Social History Tobacco Use Types Packs/Day Years Used Date Smoking Tobacco: Never Assessed Comments Unknown Sex and Gender Information Value Date Recorded Sex Assigned at Not on file Legal Sex Female 4:42 AM CHIEF CRNA Gender Identity Not on file Sexual Orientation Not on file documented as of this encounter Plan of Treatment Upcoming Encounters Date Type Department Care Team (Late st Contact Info) Description 03/21/2025 1:00 PM CDT Office Visit [facility] Oncology and Hematology - [place] [address] [facility] [address] [place] [address] Perez Roberts MD [address] [facility] [address] [place] [address] documented as of this encounter Visit Diagnoses Not on filedocumented in this encounter Care Teams Stock Hanger Relationship Specialty Start Date End Date Jordyn Villa MD PCP - General Family Practice 08/31/21 documented as of this encounter
--- OUTSIDE RECORDS SUMMARY | 2025-03-21 12:48 | XMS_ITS | Encounter Summary ---
Author Organization [facility] Address [address] [place] [address] Care Team Providers Care Weasand Trimmer Name Role Phone Jordyn Villa MD Primary Care Provider [phone]- [phone] Encounter Details Date Type Department Care Team (Late st Contact Info) Description 08/21/2002 Outpatient Historical [facility] Adult Hospitalists [facility] [address] [place] [address] Lena Spence Social History Tobacco Use Types Packs/Day Years Used Date Smoking Tobacco: Never Assessed Comments Unknown Sex and Gender Information Value Date Recorded Sex Assigned at Not on file Legal Sex Female 4:42 AM OCCUPATIONAL THERAPIST ASSISTANTS Gender Identity Not on file Sexual Orientation Not on file documented as of this encounter Plan of Treatment Upcoming Encounters Date Type Department Care Team (Late st Contact Info) Description 03/21/2025 1:00 PM CDT Office Visit [facility] Oncology and Hematology - [place] [address] [facility] [address] [place] [address] Perez Roberts MD [address] [facility] [address] [place] [address] documented as of this encounter Visit Diagnoses Not on filedocumented in this encounter Care Teams Weasand Trimmer Relationship Specialty Start Date End Date Jordyn Villa MD PCP - General Family Practice 08/31/21 documented as of this encounter
--- OUTSIDE RECORDS SUMMARY | 2025-03-21 12:48 | XMS_ITS | Clinical Summary ---
Author Organization [facility] Address [address] [place] [address] Care Team Providers Care Supervisor Television Chassis Repair Name Role Phone Juan Perez MD Primary Care Provider [phone] Encounters Date Type Department Care Team Description 02/28/2025 Telephone [facility] Orthopedic & Sports Medicine [facility] [address] [place] [address] Mitchell Marcus MD Appointment Request from Last 3 Months Social History Tobacco Use Types Packs/Day Years Used Date Smoking Tobacco: Never Assessed Comments Unknown Sex and Gender Information Value Date Recorded Sex Assigned at Not on file Legal Sex Female 9:58 AM CDT Gender Identity Not on file Sexual Orientation Not on file Plan of Treatment Upcoming Encounters Date Type Department Care Team (Late st Contact Info) Description 05/16/2025 10:00 AM COLLECTIONS OFFICER Office Visit [facility] Orthopedic & Sports [facility] [address] [place] [address] Mitchell Marcus MD [address] [facility] [id number] [place] [id number] Health Maintenance Due Date Last Done Comments DTaP, Tdap and Td Vaccines ( 1 - Tdap) 1960 Pneumococcal Vaccine: 50+ Ye ars (1 of 1 - PCV) 1991 Zoster Vaccines (1 of 2) 1991 Annual Medicare Wellness Visit 2006 Dexa Scan (General) 2006 RSV Immunization or 60+ Years (1 - 1-dose 75+ series) 2016 PHQ-2 (Physician [place]) 07/04/2024 COVID-19 Vaccine ( - 2023-2 5 season) 2025 Meningococcal B Vaccine Aged Out No l onger eligible based on patient's age to complete this topic Meningococcal Vaccine Aged Out No john josh eligible based on patient's age to complete this topic RSV Immunizations Under 20 Months Aged Out No longer eligible based on patient's age to complete this topic Insurance [employer]ET[employer] Care Teams Supervisor Television Chassis Repair Relationship Specialty Start Date End Date Juan Perez MD [address] [place] [address] PCP - General FAMILY PRACTICE 02/28/25
--- OUTSIDE RECORDS SUMMARY | 2025-03-21 12:48 | XMS_ITS | Encounter Summary ---
Author Organization [facility] Address [address] [place] [address] Care Team Providers Care Staffing Administrator Name Role Phone Jordyn Villa MD Primary Care Provider [phone]- [phone] Encounter Details Date Type Department Care Team (Latest Contact Info) Description 08/08/2002 Inpatient Historical [facility] Hai Ford MD [address] [facility] [address] [place] [address] CERVICAL SPONDYLOSIS (Primary Dx) Social History Tobacco Use Types Packs/Day Years Used Date Smoking Tobacco: Never Assessed Comments Unknown Sex and Gender Information Value Date Recorded Sex Assigned at Not on file Legal Sex Female 4:42 AM ANIMAL CARE WORKER Gender Identity Not on file Sexual Orientation Not on file documented as of this encounter Plan of Treatment Upcoming Encounters Date Type Department Care Team (Late st Contact Info) Description 03/21/2025 1:00 PM CDT Office Visit [facility] Oncology and Hematology - [place] [address] [facility] [address] [place] [address] Perez Roberts MD [address] [facility] [address] [place] [address] documented as of this encounter Visit Diagnoses Diagnosis 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
--- OUTSIDE RECORDS SUMMARY | 2025-03-21 12:48 | XMS_ITS | Encounter Summary ---
Author Organization [facility] Address [address] [place] [address] Care Team Providers Care Dryerman/Woman Name Role Phone Jordyn Villa MD Primary Care Provider [phone]- [phone] Encounter Details Date Type Department Care Team (Late st Contact Info) Description 08/17/2002 Outpatient Historical [facility] Adult Hospitalists [address] [address] Boo Le MD Social History Tobacco Use Types Packs/Day Years Used Date Smoking Tobacco: Never Assessed Comments Unknown Sex and Gender Information Value Date Recorded Sex Assigned at Not on file Legal Sex Female 4:42 AM AUDIO VISUAL SECRETARY Gender Identity Not on file Sexual Orientation Not on file documented as of this encounter Plan of Treatment Upcoming Encounters Date Type Department Care Team (Late st Contact Info) Description 03/21/2025 1:00 PM CDT Office Visit [facility] Oncology and Hematology - [place] [address] [facility] [address] [place] [address] Perez Roberts MD [address] [facility] [address] [place] [address] documented as of this encounter Visit Diagnoses Not on filedocumented in this encounter Care Teams Dryerman/Woman Relationship Specialty Start Date End Date Jordyn Villa MD PCP - General Family Practice 08/31/21 documented as of this encounter
--- OUTSIDE RECORDS SUMMARY | 2025-03-21 12:48 | XMS_ITS | Encounter Summary ---
Author Organization [facility] Care Team Providers Care Director Of Family Service Center Name Role Phone Mandeep Ozuna MD Primary Care Provider [phone] Efren Navarrete MD Unavailable [phone] Chandler Mcdaniels MD Unavailable Poli Villagran MD, Angel Slade Unavailable Jordyn Villa MD Primary Care Provider Encounter Details Date Type Department Care Team (Latest Contact Info) Description 06/08/2017 Orders Only [facility] ProviderLow MD [address] [place] [address] Social History Tobacco Use Types Packs/Day Years Used Date Smoking Tobacco: Never Assessed Comments Unknown Sex and Gender Information Value Date Recorded Sex Assigned at Not on file Legal Sex Female 8:32 PM CARPENTER [employer]ADLE [employer]LLY Gender Identity Female 04/21/2020 9:39 AM CDT Sexual Orientation Straight 04/21/2020 9: 38 AM CDT documented as of this encounter Plan of Treatment Not on file documented as of this encounter Procedures Procedure Name Priority Date/Time Associated Diagnosis Comments SCAN - LABS 07/15/2017 12:00 AM [employer] documented in this encounter Results * SCAN - LABS (07/15/2017 12:00 AM [employer]) Narrative 07/15/2017 12:00 AM [employer] Ordered by an unspecified provider. us Historical Provider Final Res ult documented in this encounter Visit Diagnoses Not on filedocumented in this encounter Additional Health Concerns Infection Onset Date Last Indicated Resolved Time COVID: Suspected 10/14/2023 10/14/2023 10/14/2023 11:12 AM CDT documented as of this encounter Care Teams Director Of Family Service Center Relationship Specialty Start Date End Date Mandeep Ozuna MD [address] [place] [address] PCP - General 08/16/18 07/14/20 Jordyn Villa MD [address] [place] [address] PCP - General Family Medicine 07/15/20 Efren Navarrete MD [address] [place] [address] Boomswing Operator Cardiovascular Disease 03/22/19 Chandler Mcdaniels MD [address] [place] [address] Consulting Physician Neurology 05/02/19 Angel Ashton Jr., MD [address] [place] [address] Consulting Physician Ophthalmology 05/02/19 documented as of this encounter
--- OUTSIDE RECORDS SUMMARY | 2025-03-21 12:48 | XMS_ITS | Encounter Summary ---
Author Organization [facility] Address [address] [place] [address] Care Team Providers Care Guest Services Attendant Name Role Phone Jordyn Vilal MD Primary Care Provider [phone]- [phone] Encounter Details Date Type Department Care Team (Late st Contact Info) Description 08/16/2002 Outpatient Historical [facility] Adult Hospitalists [facility] [address] [place] [address] Lena Spence Social History Tobacco Use Types Packs/Day Years Used Date Smoking Tobacco: Never Assessed Comments Unknown Sex and Gender Information Value Date Recorded Sex Assigned at Not on file Legal Sex Female 4:42 AM FRUIT HARVESTER Gender Identity Not on file Sexual Orientation Not on file documented as of this encounter Plan of Treatment Upcoming Encounters Date Type Department Care Team (Late st Contact Info) Description 03/21/2025 1:00 PM CDT Office Visit [facility] Oncology and Hematology - [place] [address] [facility] [address] [place] [address] Perez Roberts MD [address] [facility] [address] [place] [address] documented as of this encounter Visit Diagnoses Not on filedocumented in this encounter Care Teams Guest Services Attendant Relationship Specialty Start Date End Date Jordyn Villa MD PCP - General Family Practice 08/31/21 documented as of this encounter
--- OUTSIDE RECORDS SUMMARY | 2025-03-21 12:48 | XMS_ITS | Encounter Summary ---
Author Organization [facility] Facility Care Team Providers Care Oracle Solutions Architect Name Role Phone Mandeep Ozuna MD Primary Care Provider [phone] Efren Navarrete MD Unavailable [phone] Chandler Mcdaniels MD Unavailable Poli Villagran MD, Angel Slade Unavailable Jordyn Villa MD Primary Care Provider Encounter Details Date Type Department Care Team (Latest Contact Info) Description 07/28/2017 Orders Only [facility] CLINCONV ProviderLow MD [address] [place] [address] Social History Tobacco Use Types Packs/Day Years Used Date Smoking Tobacco: Never Assessed Comments Unknown Sex and Gender Information Value Date Recorded Sex Assigned at Not on file Legal Sex Female 8:32 PM SENIOR RADIATION THERAPIST Gender Identity Female 04/21/2020 9:39 AM CDT Sexual Orientation Straight 04/21/2020 9: 38 AM CDT documented as of this encounter Plan of Treatment Not on file documented as of this encounter Procedures Procedure Name Priority Date/Time Associated Diagnosis Comments CARDIOLOGY REPORT 07/28/2017 12: 00 AM SENIOR RADIATION THERAPIST documented in this encounter Results * CARDIOLOGY REPORT (07/28/2017 12:00 AM SENIOR RADIATION THERAPIST) Anatomical Region Laterality Modality Other Narrative 07/28/2017 12:00 AM SENIOR RADIATION THERAPIST Ordered by an unspecified provider. us Historical Provider [facility] VI R[facility]SO Final Result documented in this encounter Visit Diagnoses Not on filedocumented in this encounter Additional Health Concerns Infection Onset Date Last Indicated Resolved Time COVID: Suspected 10/14/2023 10/14/2023 10/14/2023 11:12 AM CDT documented as of this encounter Care Teams Oracle Solutions Architect Relationship Specialty Start Date End Date Mandeep Ozuna MD [address] [place] [address] PCP - General 08/16/18 07/14/20 Jordyn Villa MD [address] [place] [address] PCP - General Family Medicine 07/15/20 Efren Navarrete MD [address] [place] [address] Motor Equipment Captain Cardiovascular Disease 03/22/19 Chandler Mcdaniels MD [address] [place] [address] Consulting Physician Neurology 05/02/19 Angel Ashton Jr., MD [address] [place] [address] Consulting Physician Ophthalmology 05/02/19 documented as of this encounter
--- OUTSIDE RECORDS SUMMARY | 2025-03-21 12:48 | XMS_ITS | Encounter Summary ---
Author Organization [facility] Address [address] [place] [address] Care Team Providers Care Wool Tamper Name Role Phone Jordyn Villa MD Primary Care Provider [phone] Encounter Details Date Type Department Care Team (Late st Contact Info) Description 08/11/2002 Outpatient Historical [facility] Adult Hospitalists [address] [address] Andria Rudolph MD [address] [place] [address] Social History Tobacco Use Types Packs/Day Years Used Date Smoking Tobacco: Never Assessed Comments Unknown Sex and Gender Information Value Date Recorded Sex Assigned at Not on file Legal Sex Female 4:42 AM OUTSIDE SALESMAN Gender Identity Not on file Sexual Orientation Not on file documented as of this encounter Plan of Treatment Upcoming Encounters Date Type Department Care Team (Late st Contact Info) Description 03/21/2025 1:00 PM CDT Office Visit [facility] Oncology and Hematology - [place] [address] [facility] [address] [place] [address] Perez Roberts MD [address] [facility] [address] [place] [address] documented as of this encounter Visit Diagnoses Not on filedocumented in this encounter Care Teams Wool Tamper Relationship Specialty Start Date End Date Jordyn Villa MD PCP - General Family Practice 08/31/21 documented as of this encounter
--- OUTSIDE RECORDS SUMMARY | 2025-03-21 12:48 | XMS_ITS | Encounter Summary ---
Author Organization [facility] Address [address] [place] [address] Care Team Providers Care Sort Line Worker Name Role Phone Jordyn Villa MD Primary Care Provider [phone]- [phone] Encounter Details Date Type Department Care Team (Late st Contact Info) Description 08/12/2002 Outpatient Historical [facility] [address] [place] [phone] Alverto Quinones MD NO ADDRESS ON FILE Social History Tobacco Use Types Packs/Day Years Used Date Smoking Tobacco: Never Assessed Comments Unknown Sex and Gender Information Value Date Recorded Sex Assigned at Not on file Legal Sex Female 4:42 AM REBAR BENDER Gender Identity Not on file Sexual Orientation Not on file documented as of this encounter Plan of Treatment Upcoming Encounters Date Type Department Care Team (Late st Contact Info) Description 03/21/2025 1:00 PM CDT Office Visit [facility] Oncology and Hematology - [place] [address] [facility] [address] [place] [address] Perez Roberts MD [address] [facility] [address] [place] [address] documented as of this encounter Visit Diagnoses Not on filedocumented in this encounter Care Teams Sort Line Worker Relationship Specialty Start Date End Date Jordyn Villa MD PCP - General Family Practice 08/31/21 documented as of this encounter
--- OUTSIDE RECORDS SUMMARY | 2025-03-21 12:48 | XMS_ITS | Encounter Summary ---
Author Organization [facility] Facility Care Team Providers Care Fruit Dryer Name Role Phone Mandeep Ozuna MD Primary Care Provider [phone] Efren Navarrete MD Unavailable [phone] Chandler Mcdaniels MD Unavailable [phone] Poli Villagran MD, Angel Slade Unavailable Jordyn Villa MD Primary Care Provider Encounter Details Date Type Department Care Team (Latest Contact Info) Description 04/25/2017 Orders Only [facility] CLINCONV ProviderLow MD [address] [place] [address] Social History Tobacco Use Types Packs/Day Years Used Date Smoking Tobacco: Never Assessed Comments Unknown Sex and Gender Information Value Date Recorded Sex Assigned at Not on file Legal Sex Female 8:32 PM BREAD JOCKEY Gender Identity Female 04/21/2020 9:39 AM CDT Sexual Orientation Straight 04/21/2020 9: 38 AM CDT documented as of this encounter Plan of Treatment Not on file documented as of this encounter Procedures Procedure Name Priority Date/Time Associated Diagnosis Comments CARDIOLOGY REPORT 07/15/2017 12: 00 AM BREAD JOCKEY documented in this encounter Results * CARDIOLOGY REPORT (07/15/2017 12:00 AM BREAD JOCKEY) Anatomical Region Laterality Modality Other Narrative 07/15/2017 12:00 AM BREAD JOCKEY Ordered by an unspecified provider. us Historical Provider CV CARDIAC SERVICES VI RUSSO Final Result documented in this encounter Visit Diagnoses Not on filedocumented in this encounter Additional Health Concerns Infection Onset Date Last Indicated Resolved Time COVID: Suspected 10/14/2023 10/14/2023 10/14/2023 11:12 AM CDT documented as of this encounter Care Teams Fruit Dryer Relationship Specialty Start Date End Date Mandeep Ozuna MD [address] [place] [address] PCP - General 08/16/18 07/14/20 Jordyn Villa MD [address] [place] [address] PCP - General Family Medicine 07/15/20 Efren Navarrete MD [address] [place] [address] Product Scientist Cardiovascular Disease 03/22/19 Chandler Mcdaniels MD [address] [place] [address] Consulting Physician Neurology 05/02/19 Angel Ashton Jr., MD [address] [place] [address] Consulting Physician Ophthalmology 05/02/19 documented as of this encounter
--- OUTSIDE RECORDS SUMMARY | 2025-03-21 12:48 | XMS_ITS | Encounter Summary ---
Author Organization [facility] Address [address] [place] [address] Care Team Providers Care Chinchilla Farmer Name Role Phone Jordyn Villa MD Primary Care Provider [phone]- [phone] Encounter Details Date Type Department Care Team (Late st Contact Info) Description 08/11/2002 Outpatient Historical [facility] Adult Critical Care [facility] [address] [place] [address] Asher Eaton MD [address] [place], [place] [id number] Social History Tobacco Use Types Packs/Day Years Used Date Smoking Tobacco: Never Assessed Comments Unknown Sex and Gender Information Value Date Recorded Sex Assigned at Not on file Legal Sex Female 4:42 AM MARINE EQUIPMENT SALES ENGINEER Gender Identity Not on file Sexual Orientation Not on file documented as of this encounter Plan of Treatment Upcoming Encounters Date Type Department Care Team (Late st Contact Info) Description 03/21/2025 1:00 PM CDT Office Visit [facility] Oncology and Hematology - [place] [address] [facility] [address] [place] [address] Perez Roberts MD [address] [facility] [address] [place] [address] documented as of this encounter Visit Diagnoses Not on filedocumented in this encounter Care Teams Chinchilla Farmer Relationship Specialty Start Date End Date Jordyn Villa MD PCP - General Family Practice 08/31/21 documented as of this encounter
--- OUTSIDE RECORDS SUMMARY | 2025-03-21 12:48 | XMS_ITS | Clinical Summary ---
Author Organization [facility] Address [address] [place] [address] Care Team Providers Care County Treasurer Name Role Phone Efren Navarrete MD Unavailable [phone] Chandler Mcdaniels MD Unavailable Poli Villagran MD, Angel Slade Unavailable Jordyn Villa MD Primary Care Provider Allergies Active Allergy Reactions Criticality Noted Date Comments Adhesive Tape-Silicones Rash Medium 08/04/2017 Neomycin Hives,Rash High 05/11/2019 Rash Mmnwwxcf-Zsenjrmgph-Vsirmfule Unknown Omeprazole Diarrhea Low 10/17/2019 Polymyxin B Hives,Rash High 05/11/2019 Rash Medications multivitamin with minerals tablet Take 1 tablet by mouth daily Active furosemide (LASIX) 40 mg tablet TAKE 1 TABLET BY MOUTH EVERY DAY 90 tablet 2 020 Active Additional Information Patient taking differently: 40 mg oral As needed, Reported on 10/22/2024 magnesium oxide 500 mg capsuleIndicati ons:Atrial fibrillation with slow ventricular response (HCC),PAF (paroxysmal atrial fibrillation),E ssential hypertension,PV C (premature ventricular contraction) Take 500 mg by mouth daily 90 capsule 1 022 Active clobetasoL (TEMOVATE) 0.05 % external solution Apply topically 2 (two) times a day Active famotidine (PEPCID) 20 mg tablet Take 1 tablet (20 mg total) by mouth daily Active calcitonin (MIACALCIN) 200 unit/actuation nasal spray 1 spray by other route daily Active allopurinoL (ZYLOPRIM) 100 mg tablet TAKE 3 TABLETS BY MOUTH DAILY 270 tablet Active triamcinolone (KENALOG) 0.1 % ointment APPLY TO THE AFFECTED AREAS OF LEFT SHOULDER DAILY NEEDED. AVOID APPLICATION ON FACE AND GROIN. Active metoprolol tartrate (LOPRESSOR) 100 mg tabletIndicatio ns:Atrial fibrillation with slow ventricular response (HCC) Take 1 tablet (100 mg total) by mouth 2 (two) times a day 180 tablet 3 Active methocarbamoL (ROBAXIN) 500 mg tablet Take 1 tablet (500 mg total) by mouth 3 (three) times a day as needed for muscle spasms 025 Active acetaminophen (TYLENOL) 500 mg tablet Take 1 tablet (500 mg total) by mouth every 6 (six) hours as needed for pain Active bisacodyl EC (DULCOLAX EC) 5 mg EC tabletIndicatio ns:constipation Take 1 tablet (5 mg total) by mouth daily as needed for constipation Active polyethylene glycol 400 0.25 % drops Administer 1 drop into both eyes nightly Active UNABLE TO FIND Administer 1 each into both 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 before 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 Med Name: Sodium chloride Ophthalmic Solution 5% Hypertonicity eye drops Active calcitRIOL (ROCALTROL) 0.25 mcg capsule TAKE 1 CAPSULE BY MOUTH EVERY DAY 90 capsule 3 025 Active amiodarone (PACERONE) 200 mg tablet Take 1 tablet (200 mg total) by mouth daily Active amLODIPine (NORVASC) 5 mg tablet Take 1 tablet (5 mg total) by mouth daily 025 Active Eliquis 5 mg tablet TAKE 1 TABLET BY MOUTH TWICE A DAY 180 tablet 3 Active Eliquis 5 mg tablet Take 1 tablet (5 mg total) by mouth 2 (two) times a day 180 tablet 3 024 2024 Discontinued Active Problems Problem Noted Date Diagnosed Date 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 Probably do not need metoprolol diltiazem and digoxin. CKD so will stop ditch. Pacemaker 06/06/2019 Assessment & Plan (07/15/2020 2:22 PM DESIGN TEACHER): Check today shows underlying rhythm sinus bradycardia. 95% a pace no V pacing excellent lead function. Battery 8 years. Assessment & Plan (01/08/2020 4:11 PM CDT): Check shows normal function. Underlying rhythm sinus bradycardia. 100% a pace no V pacing. Excellent lead function better life. Assessment & Plan (07/10/2019 2:38 PM DESIGN TEACHER): Check today shows normal function. Underlying rhythm atrial standstill. 100% a pace no V pacing excellent lead function. Battery 9 years. 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 Healing well. Doing well Acute CVA (cerebrovascular accident) 05/02/2019 Assessment & Plan (07/13/2019 11:07 AM DESIGN TEACHER): The patient is a 79-year-old female with [...] on tele -- Consult neuro - the [facility] stroke physician felt this was likely to be embolic. He suggested holding anticoagulation for now and checking a Xa level to assess for compliance with Eliquis - she denies missing any doses and her INR was elevated suggesting compliance Bradycardia 05/02/2019 Assessment & Plan (07/15/2020 2:28 PM DESIGN TEACHER): Histograms okay Assessment & Plan (05/02/2019 2:12 [...] 05/02/2019 Assessment & Plan (07/15/2020 2:28 PM DESIGN TEACHER): Well controlled Assessment & Plan (01/08/2020 4:12 PM CDT): Well controlled Assessment & Plan (07/10/2019 2:48 PM DESIGN TEACHER): Continue metoprolol and diltiazem Assessment & Plan (05/02/2019 2:15 AM CDT): Holding metoprolol as above; will follow BP; may need another agent started pending her blood pressure and heart rate trend Tremor of both hands 03/26/2019 Assessment & Plan (03/26/2019 9:58 AM CDT): Has worsened on amiodarone. Will stop amiodarone. 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 Creatinine stable. 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 Will get PFTs. LFTs were improving will repeat and check TFTs Well child examination 12/20/2018 Assessment & Plan (07/15/2020 2:28 PM DESIGN TEACHER): Creatinine less than 1.5. Continue Eliquis 5 mg twice daily Assessment & Plan (07/10/2019 2:39 PM DESIGN TEACHER): Continue Eliquis 5 mg twice daily. Recent [...] 08/15/2018 Assessment & Plan (07/15/2020 2:23 PM DESIGN TEACHER): Ramer extremely low. No indication for anti arrhythmic Assessment & Plan (01/08/2020 4:11 PM CDT): Only for episodes all less than 1 minute. Because of history of CVA will continue anticoagulation. No indication for antiarrhythmics Assessment & Plan (07/10/2019 2:48 PM DESIGN TEACHER): Ramer essentially 0 with only 2 mode switches maximum 12 seconds. No recommendation for antiarrhythmics may continue Eliquis for stroke prevention. Amiodarone already discontinued. Assessment & Plan (06/06/2019 10:30 AM DESIGN TEACHER): Continue anticoagulation Assessment & Plan (05/02/2019 2:14 [...] on file Legal Sex Female 8:32 PM DESIGN TEACHER Gender Identity Female 04/21/2020 9:39 AM CDT Sexual Orientation Straight 04/21/2020 9: 38 AM CDT Obstetrics History Last Filed Vital Signs Vital Sign Reading Time Taken Comments Blood Pressure 137/78 10/22/2024 2:41 PM CDT Pulse 108 10/22/2024 2:41 PM CDT Temperature 36.2 C (97.1 F) 10/22/2024 2:41 PM CDT Respiratory Rate 17 10/14/2023 7:05 PM CDT Oxygen Saturation 95% 08/23/2024 9:54 AM DESIGN TEACHER Inhaled Oxygen Concentration - - Weight 69.7 kg (153 lb 9.6 oz) 10/22/2024 2:41 P M CDT Height 152.4 cm (5') 10/22/2024 2:41 PM CDT Body Mass Index 30 10/22/2024 2:41 PM CDT Plan of Treatment Health Maintenance Due Date Last Done Comments Depression Screening 1941 Fall Risk Assessment 1941 Osteoporosis Screening-Bone Density Scan 1941 Hepatitis B Screening 1959 Well Visit 65+ 2006 Pneumococcal vaccine 65+ (2 of 2 - PCV) 04/24/2021 04/24/2020 Covid-19 Vaccine (3 - 2024-2 6 season) 2025 09/04/2020, 08/07/2020 Influenza Vaccine (#1) 2025 , 04/09/2020, 04/13/2019, Additional history exists DTaP/Tdap/Td Vaccine (2 - Td or Tdap) 04/30/2030 04/30/2020 Zoster Vaccine Completed 12/26/2020, 10/02/2020 Insurance AET[employer] MEDICARE [facility] MEDICARE ADVANTAGE [facility] MEDICARE Advance Directives For more information, please contact: [phone] * Full Code (Latest Code Status on File) Date Activated Date Inactivated Comments 05/01/2019 8:55 PM 05/03/2019 6:29 PM Care Teams County Treasurer Relationship Specialty Start Date End Date Jordyn Villa MD [address] [place] [address], [place] [address] PCP - General Family Medicine 07/15/20 Efren Navarrete MD Airport Electrician Cardiovascular Disease 03/22/19 Chandler Mcdaniels MD Consulting Physician Neurology 05/02/19 Angel Ashton Jr., MD Consulting Physician Ophthalmology 05/02/19
--- OUTSIDE RECORDS SUMMARY | 2025-03-21 12:48 | XMS_ITS | Encounter Summary ---
Author Organization [facility] Address [address] [place] [address] Care Team Providers Care Personal Injury Specialist Name Role Phone Jordyn Villa MD Primary Care Provider [phone]- [phone] Encounter Details Date Type Department Care Team (Late Contact Info) Description 08/11/2002 Outpatient Historical Division of Neurology [address] [facility] [address] [place] [address] (Excluded Provider) [place] [address] [facility] [address] [place] [address] Social History Tobacco Use Types Packs/Day Years Used Date Smoking Tobacco: Never Assessed Comments Unknown Sex and Gender Information Value Date Recorded Sex Assigned at Not on file Legal Sex Female 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 Gender Identity Not on file Sexual Orientation Not on file documented as of this encounter Plan of Treatment Upcoming Encounters Date Type Department Care Team (Late Contact Info) Description 03/21/2025 1:00 PM CDT Office Visit [facility] Oncology and Hematology - [place] [address] [facility] [address] [place] [address] Perez Roberts MD [address] [facility] [address] [place] [address] documented as of this encounter Visit Diagnoses Not on filedocumented in this encounter Care Teams Personal Injury Specialist Relationship Specialty Start Date End Date Jordyn Villa MD PCP - General Family Practice 08/31/21 documented as of this encounter
--- OUTSIDE RECORDS SUMMARY | 2025-03-21 12:48 | XMS_ITS | Encounter Summary ---
Author Organization [facility] Address 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 Gender Identity Not on file Sexual Orientation Not on file documented as of this encounter Plan of Treatment Upcoming Encounters Date Type Department Care Team (Late st Contact Info) Description 03/21/2025 1:00 PM CDT Office Visit [facility] Oncology and Hematology - [place] [address] [facility] [address] [place] [address] Perez Roberts MD [address] [facility] [address] [place] [address] documented as of this encounter Visit Diagnoses Not on filedocumented in this encounter Care Teams Insecticide Maker Relationship Specialty Start Date End Date Jordyn Villa MD PCP - General Family Practice 08/31/21 documented as of this encounter
--- OUTSIDE RECORDS SUMMARY | 2025-03-21 12:48 | XMS_ITS | Clinical Summary ---
Author Organization [facility] Address [address] [facility] [place] [address] Care Team Providers Care Die Designer Apprentice Name Role Phone Jordyn Villa MD Primary Care Provider [phone]- [phone] Allergies Active Allergy Reactions Criticality Noted Date [...] (ROCALTROL) 0.25 mcg capsule 2 Active calcitonin, [place], (FORTICAL) 200 unit/actuation [place], Non-Aerosol 1 [place] by See Admin Instructions route daily. 3 Active dronedarone (Multaq) 400 mg Tablet Take 1 Tablet by mouth 2 times daily with meals. 3 Active magnesium oxide 500 mg Capsule Take 250 mg by mouth daily. 2 Active Active Problems Problem Noted Date Diagnosed Date Masses of both breasts 08/06/2019 Lymphadenopathy 08/04/2017 Encounters Date Type Department Care Team Description 03/15/2025 Orders Only [facility] Oncology and Hematology - [place] [address] [place] [address] Perez Roberts MD Abnormal mammography (Primary Dx); Lymphadenopathy 03/05/2025 External Device Data STL ABSTRACTION Provider, Abstract 02/19/2025 External Device Data STL ABSTRACTION Provider, Abstract 02/06/2025 External Device Data STL ABSTRACTION Provider, Abstract 01/16/2025 External Device Data STL ABSTRACTION Provider, Abstract 01/16/2025 External Device Data STL ABSTRACTION Provider, Abstract 01/16/2025 External Device Data STL ABSTRACTION Provider, Abstract 01/15/2025 External Device Data STL ABSTRACTION Provider, Abstract 12/19/2024 External Device Data STL ABSTRACTION Provider, Abstract [...] on file Legal Sex Female 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 Gender Identity Not on file Sexual Orientation [...] 1 AM CDT Height 154.9 cm (5' 1) 03/04/2022 2:48 PM CDT Body Mass Index 29.1 03/04/2022 2:48 PM CDT Plan of Treatment Upcoming Encounters Date Type Department Care Team (Late st Contact Info) Description 03/21/2025 1:00 PM CDT Office Visit [facility] Oncology and Hematology - [place] [address] [facility] [address] [place] [address] Perez Roberts MD [address] [facility] [address] [place] [address] Health Maintenance Due Date Last Done Comments DTAP/TDAP/TD VACCINES (1 - Tdap) 1960 PNEUMOCOCCAL VACCINE 50+ YEARS (1 of 1 - PCV) 04/08/19 91 ZOSTER VACCINE (1 of 2) 1991 OSTEOPOROSIS SCREENING 2006 RSV VACCINE (60+ or ) (1 - 1-dose 75+ series) 2016 INFLUENZA VACCINE (#1) 2025 Insurance [employer] PPO MCR Care Teams Die Designer Apprentice Relationship Specialty Start Date End Date Jordyn Villa MD PCP - General Family Practice 08/31/21
--- OUTSIDE RECORDS SUMMARY | 2025-03-21 12:48 | XMS_ITS | Encounter Summary ---
Author Organization [facility] Address [address] [place] [address] Care Team Providers Care Education Managers Name Role Phone Jordyn Villa MD Primary Care Provider [phone]- [phone] Encounter Details Date Type Department Care Team (Late st Contact Info) Description 07/15/2002 Emergency [facility] Cali Lan MD [facility] [place] [id number] Er, Authorized P NO ADDRESS ON FILE BRACHIAL NEURITIS NOS (Primary Dx) Social History Tobacco Use Types Packs/Day Years Used Date Smoking Tobacco: Never Assessed Comments Unknown Sex and Gender Information Value Date Recorded Sex Assigned at Not on file Legal 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 Female 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 Gender Identity Not on file Sexual Orientation Not on file documented as of this encounter Plan of Treatment Upcoming Encounters Date Type Department Care Team (Late st Contact Info) Description 03/21/2025 1:00 PM CDT Office Visit [facility] Oncology and Hematology - [place] [address] [place] [address] [facility] [address] [place] [address] Perez Roberts MD [address] [facility] [address] [place] [address] documented as of this encounter Visit Diagnoses Diagnosis Brachial neuritis or radiculitis NOS- Primary Brachial neuritis or radiculitis nos documented in this encounter Care Teams Education Managers Relationship Specialty Start Date End Date Jordyn Villa MD PCP - General Family Practice 08/31/21 documented as of this encounter
--- OUTSIDE RECORDS SUMMARY | 2025-03-21 12:48 | XMS_ITS | Encounter Summary ---
Author Organization [facility] Address [address] [place] [address] Care Team Providers Care Academic Support Assistant Name Role Phone Jordyn Villa MD Primary Care Provider [phone]- [phone] Encounter Details Date Type Department Care Team (Late st Contact Info) Description 08/15/[address] [facility] Support [facility]. ([facility]) [address] 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 Gender Identity Not on file Sexual Orientation Not on file documented as of this encounter Plan of Treatment Upcoming Encounters Date Type Department Care Team (Late st Contact Info) Description 03/21/2025 1:00 PM CDT Office Visit [facility] Oncology and Hematology - [place] [address] [facility] [address] [place] [address] Perez Roberts MD [address] [facility] [address] [place] [address] documented as of this encounter Visit Diagnoses Not on filedocumented in this encounter Care Teams Academic Support Assistant Relationship Specialty Start Date End Date Jordyn Villa MD PCP - General Family Practice 08/31/21 documented as of this encounter
[2025-03-21 13:12] LABS: Hematocrit 45.7 % (37.0-47.0); Hemoglobin 15.3 g/dL (12.0-15.0); Immature Granulocyte Percent A 0.3 % (0-0.5); Lymphocytes Absolute Auto 0.89 K/mm3 (0.9-3.2); Mean Corpuscular HGB Conc 33.5 g/dl (32-36); Mean Corpuscular Hemoglobin 32.5 pg (26-34); Mean Corpuscular Volume 97.0 fl (80-100); Nucleated Red Blood Cells Absolute Auto 0.000 K/mm3 (0.0-0.012); Nucleated Red Blood Cells Perc 0.0 % (0.0-0.2); Platelet Count Result 211 k/mm3 (150-375); Red Blood Count 4.71 M/mm3 (4.2-5.4); White Blood Count 6.9 K/mm3 (4.5-10.0)
[2025-03-21 13:16] LABS: Blood Urea Nitrogen 30 mg/dL (8-26); Carbon Dioxide 31 mmol/L (22-30); Chloride 101 mmol/L (98-109); Estimated Glomerular Filt Rate 36; Glucose 96 mg/dL (70-105); Ionized Calcium (POC) 1.19 mmol/L (1.11-1.31); Potassium 4.0 mmol/L (3.5-4.9); Sodium 141 mmol/L (138-146)
== END 2025-03-21 12:46 | disposition home or self-care (01) ==
LOC: ANHLAB 12:46
PROVIDERS: PCP Family Medicine; Visit Provider Internal Medicine Hematology & Oncology
DX: R59.1 Generalized enlarged lymph nodes (principal)
CPT/HCPCS: 36415; 80047; 85025